=== PATIENT | female | born 1940 | race Caucasian/White ===

== ENCOUNTER 2017-01-16 18:59 | Inpatient (IN) | payer OTHER ==
--- NOTE | 2017-01-16 20:10 | PDOC ---
Rapid Medical Evaluation Chief Complaint: Blood Pressure Problem Time Seen by Provider: 01/16/17 20:06 Medical Evaluation: Allergies Allergy/AdvReac Type Severity Reaction Status Date / Time No Known Allergies Allergy Verified 01/16/17 20:04 01/16/17 20:06 I have performed a brief in-person evaluation of this patient. The patient presents with a chief complaint of: High Blood Pressure >200 SBP Pertinent physical exam findings: none I have ordered the following: cbc, cmp, troponin, ekg, tsh, UA, Urine C&S, Chest X-ray. The patient will proceed to the ED for further evaluation Discharge Disposition - Referrals Referrals: Chasidy Shoemaker MD [Primary Care Provider] - - Patient Instructions - Post Discharge Activity
[2017-01-16 20:36] LABS: BASOPHIL 0.7 % (0-2.0); EOSINOPHIL 3.6 % (0-4.5); MCH 29.5 pg (25.7-33.7); MCHC 33.3 g/dl (32.0-36.0); MEAN CELL VOLUME 88.4 fl (80-96); MEAN PLT VOLUME 7.7 fl (7.5-11.1); NEUTROPHILS 65.9 % (42.8-82.8); PLATELET COUNT 275 K/MM3 (134-434); RDW 13.7 % (11.6-15.6); WHITE BLOOD COUNT 9.4 K/mm3 (4.0-10.0)
[2017-01-16 20:40] LABS: URINE APPEARANCE CLEAR; URINE BILIRUBIN NEGATIVE (NEGATIVE); URINE BLOOD 1+ (NEGATIVE); URINE COLOR STRAW; URINE GLUCOSE (UA) NEGATIVE (NEGATIVE); URINE KETONE NEGATIVE (NEGATIVE); URINE NITRITE NEGATIVE (NEGATIVE); URINE UROBILINOGEN NEGATIVE mg/dL (0.2-1.0)
[2017-01-16 20:45] LABS: URINE PROTEIN 2+ (NEGATIVE)
[2017-01-16 20:47] LABS: URINE MUCUS RARE; URINE RBC 1 /hpf (0-3); URINE WBC 25 /hpf (3-5)
[2017-01-16 20:56] LABS: ALBUMIN 3.5 g/dl (3.4-5.0); ANION GAP 6 (8-16); BILIRUBIN,TOTAL 0.2 mg/dL (0.2-1.0); CALCIUM 8.7 mg/dL (8.5-10.1); CO2 24 mmol/L (21-32); CREATININE 1.8 mg/dL (0.55-1.02); GLUCOSE,RANDOM 134 mg/dL (74-106); SGOT/AST 14 U/L (15-37); SGPT/ALT 20 U/L (12-78); TOT PROT 7.6 g/dl (6.4-8.2)
[2017-01-16 21:05] LABS: ALK PHOS 86 U/L (45-117); CPK 131 IU/L (26-192); THYROID STIMULATING HORMONE 1.75 uIU/ml (0.358-3.74); TROPONIN I < 0.02 ng/ml (0.00-0.05)
--- NOTE | 2017-01-16 21:38 | PDOC ---
History of Present Illness - General History Source: Patient, Old Records Exam Limitations: No Limitations - History of Present Illness Initial Comments: 01/16/17 22:01 The patient is a 76 year old female, with a significant past medical history of HTN, CVA (2012), diabetes and HLD, who presents to the emergency department with elevated blood pressure onset today. She reports that she saw her PMD today who noticed that her blood pressure was elevated and advised her to come to the ED for further evaluation. On presentation she denies any other symptoms other than blurry vision, which she notes is due to her cataract. She reports that she has not been compliant with her medications lately because she feels "confused" with all the current medications she is on. The patient denies chest pain, shortness of breath, headache and dizziness. Denies fever, chills, nausea, vomit, diarrhea and constipation. Denies dysuria, frequency, urgency and hematuria. Allergies: None Past surgical history: Right eye cataract surgery Social history: No alcohol, tobacco or drug use reported PMD - Dr. Renato Umaña <Ralf Wan - Last Filed: 01/16/17 22:06> <Danyel Suggs - Last Filed: 01/17/17 00:28> - General Chief Complaint: Blood Pressure Problem Stated Complaint: HYPERTENSION Time Seen by Provider: 01/16/17 21:20 Past History <Ralf Wan - Last Filed: 01/16/17 22:06> - Past Medical History CVA: Yes (2012) COPD: No Diabetes: Yes HTN: Yes Hypercholesterolemia: Yes - Suicide/Smoking/Psychosocial Hx Smoking History: Never smoked Have you smoked in the past 12 months: No Information on smoking cessation initiated: No Hx Alcohol Use: No Drug/Substance Use Hx: No Substance Use Type: None Hx Substance Use Treatment: No <Danyel Suggs - Last Filed: 01/17/17 00:28> - Past Medical History Allergies/Adverse Reactions: Allergies Allergy/AdvReac Type Severity Reaction Status Date / Time No Known Allergies Allergy Verified 01/16/17 20:04 Home Medications: Ambulatory Orders Aspirin 81 mg PO DAILY 03/27/13 Aspirin/Dipyridamole [Aggrenox -] 1 combo PO BID 03/27/13 Gabapentin [Neurontin] 300 mg PO HS 03/27/13 Glyburide/Metformin HCl [Glyburide-Metformin 5-500 mg] 2 each PO BID 03/27/13 Insulin (Novolog) [Novolog Flexpen -] 0 units SQ ACHS 03/27/13 Rosuvastatin [Crestor -] 10 mg PO DAILY 03/27/13 Amlodipine/Valsartan [Exforge 5-160 mg Tablet] 1 each PO DAILY #30 tablet Cefuroxime Axetil [Ceftin] 500 mg PO BID #10 tablet 03/24/15 Review of Systems - Review of Systems Able to Perform ROS?: Yes Comments:: 01/16/17 22:00 CONSTITUTIONAL: No fever, no chills, no fatigue EYES: No visual changes ENT: No ear pain, no sore throat CARDIOVASCULAR: No chest pain, no palpitations RESPIRATORY: No cough, no SOB GI: No abdominal pain, no nausea, no vomiting, no constipation, no diarrhea GENITOURINARY: No dysuria, no frequency, no hematuria MUSKULOSKELETAL: No backpain, no joint pain, no myalgias SKIN: No rash NEURO: No headache <Ralf Wan - Last Filed: 01/16/17 22:06> *Physical Exam - Vital Signs Last Vital Signs Temp Pulse Resp BP Pulse Ox 98.0 F 78 20 231/113 98 01/16/17 20:04 01/16/17 20:04 01/16/17 20:04 01/16/17 20:04 01/16/17 20:04 - Physical Exam Comments: 01/16/17 22:00 CONSTITUTIONAL: Well-appearing; well-nourished; in no apparent distress HEAD: Normocephalic; atraumatic EYES: PERRL; EOM intact ENMT: External appears normal; normal oropharynx NECK: Supple; non-tender; no cervical lymphadenopathy CARD: Normal S1, S2; no murmurs, rubs, or gallops RESP: Normal chest excursion with respiration; breath sounds clear and equal bilaterally; no wheezes, rhonchi, or rales ABD: Soft, non-distended; non-tender; no palpable organomegaly, no palpable hernias EXT: Normal ROM in all four extremities; non-tender to palpation; distal pulses intact SKIN: Warm, dry, no rash NEURO: No focal neurological deficiencies. <Ralf Wan - Last Filed: 01/16/17 22:06> - Vital Signs Last Vital Signs Temp Pulse Resp BP Pulse Ox 98.0 F 78 20 231/113 98 01/16/17 20:04 01/16/17 20:04 01/16/17 20:04 01/16/17 20:04 01/16/17 20:04 <Danyel Suggs - Last Filed: 01/17/17 00:28> Heart Score/ECG Review #1 ECG reviewed & interpreted by me at: 22:06 01/16/17 20:14 Ventricular rate: 68 bpm HI interval: 168 ms QRS duration: 102 ms Normal sinus rhythm Nonspecific T wave abnormality <Ralf Wan - Last Filed: 01/16/17 22:06> ED Treatment Course - LABORATORY CBC & Chemistry Diagram: 01/16/17 20:22 01/16/17 20:22 - ADDITIONAL ORDERS Additional order review: Laboratory Results 01/16/17 01/16/17 20:30 20:22 Sodium 141 Potassium 4.6 Chloride 111 H Carbon Dioxide 24 Anion Gap 6 L BUN 35 H D Creatinine 1.8 H D Creat Clearance w eGFR 27.28 Random Glucose 134 H Calcium 8.7 Total Bilirubin 0.2 D AST 14 L D ALT 20 Alkaline Phosphatase 86 D Creatine Kinase 131 Troponin I < 0.02 Total Protein 7.6 D Albumin 3.5 TSH 1.75 Urine Color Straw Urine Appearance Clear Urine pH 5.0 Ur Specific [place] 1.010 Urine Protein 2+ H Urine Glucose (UA) Negative Urine Ketones Negative Urine Blood 1+ H Urine Nitrite Negative Urine Bilirubin Negative Urine Urobilinogen Negative Urine WBC (Auto) 25 Urine RBC (Auto) 1 Ur Epithelial Cells Rare Urine Mucus Rare 01/16/17 20:22 RBC 3.84 MCV 88.4 MCHC 33.3 RDW 13.7 MPV 7.7 Neutrophils % 65.9 D Lymphocytes % 23.1 D Monocytes % 6.7 Eosinophils % 3.6 Basophils % 0.7 <Ralf Wan - Last Filed: 01/16/17 22:06> - LABORATORY CBC & Chemistry Diagram: 01/16/17 20:22 01/16/17 20:22 - ADDITIONAL ORDERS Additional order review: Laboratory Results 01/16/17 01/16/17 20:30 20:22 Sodium 141 Potassium 4.6 Chloride 111 H Carbon Dioxide 24 Anion Gap 6 L BUN 35 H D Creatinine 1.8 H D Creat Clearance w eGFR 27.28 Random Glucose 134 H Calcium 8.7 Total Bilirubin 0.2 D AST 14 L D ALT 20 Alkaline Phosphatase 86 D Creatine Kinase 131 Troponin I < 0.02 Total Protein 7.6 D Albumin 3.5 TSH 1.75 Urine Color Straw Urine Appearance Clear Urine pH 5.0 Ur Specific [place] 1.010 Urine Protein 2+ H Urine Glucose (UA) Negative Urine Ketones Negative Urine Blood 1+ H Urine Nitrite Negative Urine Bilirubin Negative Urine Urobilinogen Negative Urine WBC (Auto) 25 Urine RBC (Auto) 1 Ur Epithelial Cells Rare Urine Mucus Rare 01/16/17 20:22 RBC 3.84 MCV 88.4 MCHC 33.3 RDW 13.7 MPV 7.7 Neutrophils % 65.9 D Lymphocytes % 23.1 D Monocytes % 6.7 Eosinophils % 3.6 Basophils % 0.7 <Danyel Suggs - Last Filed: 01/17/17 00:28> Medical Decision Making - Medical Decision Making 01/17/17 00:26 Patient is well-appearing 76-year-old female with history of hypertension, noncompliant with her medication regimen who presents to the ER with significantly elevated blood pressure at that has not been effectively addressed Biba systolic and 80s or administered at the PMDs office. In the ER, patient is noted to be hypertensive on initial evaluation without any neurological deficits or evidence of acute ischemia on the EKG. CBC is within normal limit. CMP reveals elevated BUN and creatinine consistent with acute renal failure likely hypertensive in nature. Urinalysis reveals persistent 2+ routine urinary. Patient received 25 mg of hydralazine with improvement in the blood pressure of 25%. Patient will require admission for hypertensive urgency and acute renal failure. Dr. Hernández informed. <Danyel Suggs - Last Filed: 01/17/17 00:28> *DC/Admit/Observation/Transfer - Attestations Scribe Attestion: 01/16/17 21:58 Documentation prepared by Ralf Wan, acting as medical education manager for Danyel Suggs MD <Ralf Wan - Last Filed: 01/16/17 22:06> - Discharge Dispostion Admit: Yes - Attestations Physician Attestion: 01/17/17 00:26 The documentation was prepared by the scribe under my direct supervision. I have reviewed the documentation which correctly represents the findings, medical decision-making and critical action taken by me. <Danyel Suggs - Last Filed: 01/17/17 00:28> Diagnosis at time of Disposition: Hypertensive urgency Acute renal failure Qualifiers: Acute renal failure type: unspecified Qualified Code(s): N17.9 - Acute kidney failure, unspecified - Discharge Dispostion Condition at time of disposition: Fair - Referrals Referrals: Chasidy Shoemaker MD [Primary Care Provider] - - Patient Instructions - Post Discharge Activity
[2017-01-16] MEDS ORDERED: hydrALAZINE HCL 25 MG TABLET (FP) PO ONE (22:07)
[2017-01-16] MEDS ORDERED: hydrALAZINE HCL 25 MG TABLET (FP) ONE (22:09)
[2017-01-17] MEDS ORDERED: ACETAMINOPHEN 325 MG TABLET (FP) PO PRN (02:59)
[2017-01-17 04:43] VITALS: BMI 24.8
[2017-01-17] MEDS ORDERED: metFORMIN HCL 500 MG TABLET (FP) PO SCH (07:00)
[2017-01-17] MEDS ORDERED: PT OWN MED DRAWER 7, Y5N ONE ×3 (09:33→19:59)
[2017-01-17] MEDS: NEBIVOLOL 5 MG TABLET (FP) PO SCH (09:51)
[2017-01-17] MEDS: ASPIRIN COATED 81 MG TABLET.EC PO SCH (09:51)
[2017-01-17] MEDS: ASPIRIN/DIPYRIDAMOLE 25 MG/200 MG CAPSULE (FP) PO SCH ×2 (09:52→21:19)
[2017-01-17] MEDS: INSULIN SLIDING SCALE (NOVOLOG) 1 VIAL SQ SCH ×4 (09:54→21:22)
[2017-01-17] MEDS: glyBURIDE 2.5 MG TABLET (FP) PO SCH ×2 (09:54→17:07)
[2017-01-17] MEDS: GABAPENTIN 300 MG CAPSULE (FP) PO SCH ×2 (09:55→21:19)
[2017-01-17] MEDS ORDERED: amLODIPine BESYLATE 5 MG TABLET (FP) PO SCH (10:00)
[2017-01-17] MEDS ORDERED: VALSARTAN 160 MG TABLET (UD) PO SCH (10:00)
[2017-01-17] MEDS ORDERED: FLU VACCINE QUAD 60 MCG/0.5 ML (MDV 17-18) IM ONE (10:00)
--- NOTE | 2017-01-17 11:08 | HP ---
Admitting History and Physical - Primary Care Physician PCP: Chasidy Shoemaker I - Admission Chief Complaint: elevated Blood presure History of Present Illness: The patient is a 76 year old female, with a significant past medical history of HTN, CVA (2012), diabetes and HLD, who presents to the emergency department with elevated blood pressure onset today. She reports that she saw her PMD today who noticed that her blood pressure was elevated and advised her to come to the ED for further evaluation. On presentation she denies any other symptoms other than blurry vision, which she notes is due to her cataract. She reports that she has not been compliant with her medications lately because she feels "confused" with all the current medications she is on. The patient denies chest pain, shortness of breath, headache and dizziness. Denies fever, chills, nausea, vomit, diarrhea and constipation. Denies dysuria, frequency, urgency and hematuria. 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 (2012), Seizure, TIA (2013) Cardiovascular: Yes: HTN, Hyperlipdemia ...: No Endocrine: Yes: Diabetes Mellitus - Advance Directives Advance Directives: Yes: Living Will - Smoking History Smoking history: Never smoked Have you smoked in the past 12 months: No - Alcohol/Substance Use Hx Alcohol Use: No - Social History ADL: Independent History of Recent Travel: No Home Medications - Allergies Allergies/Adverse Reactions: Allergies Allergy/AdvReac Type Severity Reaction Status Date / Time No Known Allergies Allergy Verified 01/16/17 20:04 - Home Medications Home Medications: Ambulatory Orders Aspirin 81 mg PO DAILY 03/27/13 Aspirin/Dipyridamole [Aggrenox -] 1 combo PO BID 03/27/13 Gabapentin [Neurontin] 300 mg PO HS 03/27/13 Glyburide/Metformin HCl [Glyburide-Metformin 5-500 mg] 2 each PO BID 03/27/13 Insulin (Novolog) [Novolog Flexpen -] 0 units SQ ACHS 03/27/13 Rosuvastatin [Crestor -] 10 mg PO DAILY 03/27/13 Amlodipine/Valsartan [Exforge 5-160 mg Tablet] 1 each PO DAILY #30 tablet Cefuroxime Axetil [Ceftin] 500 mg PO BID #10 tablet 03/24/15 Family Disease History - Family Disease History Family Disease History: Diabetes: Mother Review of Systems - Review of Systems Eyes: reports: Blurred Vision (is slightly better) Physical Examination Vital Signs: Vital Signs Temperature 98.5 F 01/17/17 10:09 Pulse Rate 69 01/17/17 10:09 Respiratory Rate 20 01/17/17 10:09 Blood Pressure 199/86 01/17/17 10:09 O2 Sat by Pulse Oximetry (%) 95 01/17/17 03:30 Constitutional: Yes: Calm Neck: Yes: Trachea Midline Cardiovascular: Yes: Regular Rate and Rhythm, S1, S2 Respiratory: Yes: CTA Bilaterally Gastrointestinal: Yes: Normal Bowel Sounds, Soft Edema: No Neurological: Yes: Alert, Oriented Labs: CBC, BMP 01/16/17 20:22 01/16/17 20:22 Imaging - Results Chest X-ray: Report Reviewed Problem List - Problems (1) Hypertensive urgency Assessment/Plan: increase norvasc dose will have cardio see patient will use hydralazine for bloodpressure control hold diovan for now will trend creatinine Code(s): I16.0 - HYPERTENSIVE URGENCY (2) Acute renal failure Assessment/Plan: given elevated creatine will hold metformin and diovan will check renal sono renal consult placed Code(s): N17.9 - ACUTE KIDNEY FAILURE, UNSPECIFIED Qualifiers: Acute renal failure type: unspecified Qualified Code(s): N17.9 - Acute kidney failure, unspecified (3) Hyperglycemia Assessment/Plan: check hga1c sliding scale bgm;glyburide Code(s): R73.9 - HYPERGLYCEMIA, UNSPECIFIED (4) CVA (cerebral vascular accident) Assessment/Plan: statin aggrenox BP control Code(s): I63.9 - CEREBRAL INFARCTION, UNSPECIFIED
[2017-01-17] MEDS ORDERED: amLODIPine BESYLATE 10 MG TABLET (FP) PO SCH (11:37)
[2017-01-17 12:29] LABS: BASOPHIL 0.7 % (0-2.0); EOSINOPHIL 4.2 % (0-4.5); MCH 29.4 pg (25.7-33.7); MEAN CELL VOLUME 89.1 fl (80-96); MEAN PLT VOLUME 7.5 fl (7.5-11.1); NEUTROPHILS 63.3 % (42.8-82.8); PLATELET COUNT 260 K/MM3 (134-434); RDW 13.5 % (11.6-15.6); WHITE BLOOD COUNT 7.7 K/mm3 (4.0-10.0)
--- NOTE | 2017-01-17 12:54 | EKG ---
Test Reason : Blood Pressure : / mmHG Vent. Rate : 068 BPM Atrial Rate : 068 BPM P-R Int : 168 ms QRS Dur : 102 ms QT Int : 392 ms P-R-T Axes : 051 025 095 degrees QTc Int : 416 ms NORMAL SINUS RHYTHM NONSPECIFIC T WAVE ABNORMALITY ABNORMAL ECG WHEN COMPARED WITH ECG OF 22-MAR-2015 14:46, NONSPECIFIC T WAVE ABNORMALITY, IMPROVED IN INFERIOR LEADS Confirmed by LASHAUN MOJICA, PHUONG (2013) on 01/17/2017 12:53:47 PM Referred By: Confirmed By:PHUONG WILKS MD
[2017-01-17 12:59] LABS: ALBUMIN 3.1 g/dl (3.4-5.0); ALK PHOS 83 U/L (45-117); ANION GAP 5 (8-16); BILIRUBIN,TOTAL 0.5 mg/dL (0.2-1.0); CALCIUM 8.3 mg/dL (8.5-10.1); CO2 25 mmol/L (21-32); CREATININE 1.5 mg/dL (0.55-1.02); GLUCOSE,RANDOM 176 mg/dL (74-106); SGOT/AST 15 U/L (15-37); SGPT/ALT 20 U/L (12-78); TOT PROT 6.8 g/dl (6.4-8.2)
[2017-01-17 13:43] LABS: URINE LEUK ESTERASE 1+ (NEGATIVE)
--- NOTE | 2017-01-17 14:03 | CON.CARD ---
Consult Consult Specialty:: Cardiology Referred by:: Dr Hernández Reason for Consultation:: htn - History of Present Illness Chief Complaint: htn History of Present Illness: She is a 76 year old female, with a history of HTN, CVA (2012), diabetes and HLD , who presents to the emergency department with elevated blood pressure while off of medications for several weeks to months. Denies chest pain, sob, orthopnea, pnd or edema. Exercise tolerance is poor. Found with elevated bp restarted on medications. 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, TIA (2013) Cardio/Vascular: Yes: HTN, Hyperlipdemia ...: No Endocrine: Yes: Diabetes Mellitus - Alcohol/Substance Use Hx Alcohol Use: No - Smoking History Smoking history: Never smoked Have you smoked in the past 12 months: No - Social History ADL: Independent History of Recent Travel: No Home Medications - Allergies Allergies/Adverse Reactions: Allergies Allergy/AdvReac Type Severity Reaction Status Date / Time No Known Allergies Allergy Verified 01/16/17 20:04 - Home Medications Home Medications: Ambulatory Orders Aspirin 81 mg PO DAILY 03/27/13 Aspirin/Dipyridamole [Aggrenox -] 1 combo PO BID 03/27/13 Gabapentin [Neurontin] 300 mg PO HS 03/27/13 Glyburide/Metformin HCl [Glyburide-Metformin 5-500 mg] 2 each PO BID 03/27/13 Insulin (Novolog) [Novolog Flexpen -] 0 units SQ ACHS 03/27/13 Rosuvastatin [Crestor -] 10 mg PO DAILY 03/27/13 Amlodipine/Valsartan [Exforge 5-160 mg Tablet] 1 each PO DAILY #30 tablet Cefuroxime Axetil [Ceftin] 500 mg PO BID #10 tablet 03/24/15 Family Disease History - Family Disease History Family Disease History: Diabetes: Mother Vital Signs: Vital Signs Temperature 98.5 F 01/17/17 10:09 Pulse Rate 69 01/17/17 10:09 Respiratory Rate 20 01/17/17 10:09 Blood Pressure 199/86 01/17/17 10:09 O2 Sat by Pulse Oximetry (%) 96 01/17/17 09:00 Constitutional: Yes: No Distress, Calm Eyes: Yes: Conjunctiva Clear, EOM Intact HENT: Yes: Atraumatic, Normocephalic Neck: Yes: Trachea Midline Respiratory: Yes: CTA Bilaterally Gastrointestinal: Yes: Normal Bowel Sounds, Soft, Abdomen, Obese Cardiovascular: Yes: Regular Rate and Rhythm JVD: No Carotid Bruit: No PMI: Non-Displaced Heart Sounds: Yes: S1, S2 Edema: No Peripheral Pulses WNL: Yes - Other Data Labs, Other Data: CBC, BMP 01/17/17 12:27 01/17/17 12:27 Troponin, BNP 01/16/17 20:22 Troponin I < 0.02 Troponin, BNP 01/16/17 20:22 Troponin I < 0.02 Imaging - Results EKG: Report Reviewed (nsr nssttw changes.) Problem List - Problems (1) Hypertensive urgency Assessment/Plan: Blood pressure is improved. Continue current medications. Echo pending. No need for ischemia or secondary htn raymundo. DC for outpatient fu if echo OK. Code(s): I16.0 - HYPERTENSIVE URGENCY
[2017-01-17] MEDS: hydrALAZINE HCL 25 MG TABLET (FP) PO SCH ×2 (17:06→21:18)
--- NOTE | 2017-01-17 17:46 | CONSULT ---
Consult Consult Specialty:: Nephrology Reason for Consultation:: LUIS ANTONIO and HTN - History of Present Illness Chief Complaint: sent in from PMD for elevated blood pressure History of Present Illness: Pt is a 76 year old female with pmhx of HTN, CVA, hyperlipidemia, and DM who was sent in to the hospital from her PMD for elevated blood pressure. She says that she stopped taking her blood pressure medications a few weeks ago. She denies chest pain or shortness of breath. She says she feels she is on too many medications. She was found to have elevated creatinine and I was called to evaluate her. She denies dysuria or hematuria. She denies nsaid use. 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, TIA (2013) Cardio/Vascular: Yes: HTN, Hyperlipdemia ...: No Endocrine: Yes: Diabetes Mellitus - Alcohol/Substance Use Hx Alcohol Use: No - Smoking History Smoking history: Never smoked Have you smoked in the past 12 months: No - Social History ADL: Independent History of Recent Travel: No Home Medications - Allergies Allergies/Adverse Reactions: Allergies Allergy/AdvReac Type Severity Reaction Status Date / Time No Known Allergies Allergy Verified 01/16/17 20:04 - Home Medications Home Medications: Ambulatory Orders Aspirin 81 mg PO DAILY 03/27/13 Aspirin/Dipyridamole [Aggrenox -] 1 combo PO BID 03/27/13 Gabapentin [Neurontin] 300 mg PO HS 03/27/13 Glyburide/Metformin HCl [Glyburide-Metformin 5-500 mg] 2 each PO BID 03/27/13 Insulin (Novolog) [Novolog Flexpen -] 0 units SQ ACHS 03/27/13 Rosuvastatin [Crestor -] 10 mg PO DAILY 03/27/13 Amlodipine/Valsartan [Exforge 5-160 mg Tablet] 1 each PO DAILY #30 tablet Cefuroxime Axetil [Ceftin] 500 mg PO BID #10 tablet 03/24/15 Family Disease History - Family Disease History Family Disease History: Diabetes: Mother Review of Systems - Review of Systems Constitutional: reports: No Symptoms Eyes: reports: No Symptoms HENT: reports: No Symptoms Neck: reports: No Symptoms Cardiovascular: reports: No Symptoms Respiratory: reports: No Symptoms Gastrointestinal: reports: No Symptoms Genitourinary: reports: No Symptoms Musculoskeletal: reports: No Symptoms Integumentary: reports: No Symptoms Neurological: reports: No Symptoms Endocrine: reports: No Symptoms Hematology/Lymphatic: reports: No Symptoms Psychiatric: reports: No Symptoms Physical Exam Vital Signs: Vital Signs Temperature 99.0 F 01/17/17 14:43 Pulse Rate 68 01/17/17 14:43 Respiratory Rate 20 01/17/17 14:43 Blood Pressure 183/76 01/17/17 14:43 O2 Sat by Pulse Oximetry (%) 96 01/17/17 09:00 Constitutional: Yes: Calm Eyes: Yes: Conjunctiva Clear HENT: Yes: Atraumatic Neck: Yes: Supple Cardiovascular: Yes: S1, S2 Respiratory: Yes: CTA Bilaterally Gastrointestinal: Yes: Soft Renal/: Yes: WNL Musculoskeletal: Yes: WNL Edema: No Neurological: Yes: Oriented Psychiatric: Yes: Oriented Labs: CBC, BMP 01/17/17 12:27 01/17/17 12:27 Laboratory Tests 01/16/17 01/16/17 01/17/17 20:22 20:30 12:27 WBC 7.7 Hct 32.3 L Sodium Potassium Chloride Carbon Dioxide 24 Anion Gap 6 L BUN 35 H D Creatinine 1.8 H D Urine Protein 2+ H Urine Blood 1+ H 01/17/17 12:27 WBC Hct Sodium 141 Potassium 4.7 Chloride 111 H Carbon Dioxide 25 Anion Gap 5 L BUN 36 H Creatinine 1.5 H Urine Protein Urine Blood Imaging - Results Chest X-ray: Report Reviewed Ultrasound: Report Reviewed Other: Report Reviewed (echo: LV size and function are normal) Problem List - Problems (1) Acute renal failure Code(s): N17.9 - ACUTE KIDNEY FAILURE, UNSPECIFIED Qualifiers: Acute renal failure type: unspecified Qualified Code(s): N17.9 - Acute kidney failure, unspecified (2) CVA (cerebral vascular accident) Code(s): I63.9 - CEREBRAL INFARCTION, UNSPECIFIED (3) Hypertensive urgency Code(s): I16.0 - HYPERTENSIVE URGENCY (4) UTI (urinary tract infection) Code(s): N39.0 - URINARY TRACT INFECTION, SITE NOT SPECIFIED Qualifiers: Urinary tract infection type: acute cystitis Hematuria presence: with hematuria Qualified Code(s): N30.01 - Acute cystitis with hematuria Assessment/Plan Current Medications Generic Name Dose Route Start Last Admin Trade Name Isrrael PRN Reason Stop Dose Admin Acetaminophen 650 mg 01/17/17 02:59 Tylenol - PO Q6H PRN FEVER OR PAIN Amlodipine Besylate 10 mg 01/17/17 11:37 Norvasc - PO DAILY IRMA Aspirin 81 mg 01/17/17 10:00 01/17/17 09:51 Ecotrin - PO 81 mg DAILY IRMA Administration Dipyridamole/Aspirin 1 combo 01/17/17 10:00 01/17/17 09:52 Aggrenox - PO 1 combo BID IRMA Administration Gabapentin 300 mg 01/17/17 10:00 01/17/17 09:55 Neurontin - PO 300 mg BID IRMA Administration Glyburide 2.5 mg 01/17/17 07:00 01/17/17 17:07 Diabeta - PO 2.5 mg BID@0700,1630 IRMA Administration Hydralazine HCl 25 mg 01/17/17 17:00 01/17/17 17:06 Apresoline - PO 25 mg BID IRMA Administration Insulin Aspart 1 vial 01/17/17 07:00 01/17/17 17:06 Novolog Vial Sliding Scale - SQ Not Given ACHS [facility] Protocol Nebivolol 5 mg 01/17/17 10:00 01/17/17 09:51 Bystolic - PO 5 mg DAILY IRMA Administration Rosuvastatin Calcium 10 mg 01/17/17 22:00 Crestor - PO HS IRMA Selected Entries 01/16/17 01/17/17 01/17/17 20:04 03:30 06:00 Blood Pressure 231/113 182/91 162/68 01/17/17 01/17/17 10:09 14:43 Blood Pressure 199/86 183/76 Impression 1. LUIS ANTONIO 2. HTN with hypertensive urgency 3. DM 4. non compliance with meds 5. hyperlipidemia 6. hx CVA 7. epilesy 8. renal cyst 9. possible angiomyolipoma Plan - monitor blood pressure - cont current meds - repeat bp after amlodipine - can titrate up hydralazine as needed - cardiology input appreciated - renal ultrasound reviewed - pt does have blood and protein in her urine - pt will need outpt CKD workup - renal function is improved from yesterday - will follow Dr Franklin
[2017-01-17] MEDS ORDERED: ROSUVASTATIN CA 10 MG TABLET (FP) PO SCH (22:00)
[2017-01-18] MEDS ORDERED: PT OWN MED DRAWER 7, Y5N ONE ×2 (05:20→09:03)
[2017-01-18] MEDS: glyBURIDE 2.5 MG TABLET (FP) PO SCH (06:39)
[2017-01-18] MEDS: INSULIN SLIDING SCALE (NOVOLOG) 1 VIAL SQ SCH ×2 (06:42→11:51)
[2017-01-18 08:34] LABS: ALK PHOS 80 U/L (45-117); ANION GAP 8 (8-16); BILIRUBIN,TOTAL 0.4 mg/dL (0.2-1.0); CHOLESTEROL 215 mg/dL (50-200); CO2 21 mmol/L (21-32); CREATININE 1.7 mg/dL (0.55-1.02); GLUCOSE,RANDOM 90 mg/dL (74-106); SGOT/AST 14 U/L (15-37); SGPT/ALT 20 U/L (12-78); TOT PROT 6.4 g/dl (6.4-8.2)
[2017-01-18 09:08] VITALS: BP 159/84; PULSE 58; TEMP 97.8
[2017-01-18] MEDS: GABAPENTIN 300 MG CAPSULE (FP) PO SCH (09:32)
[2017-01-18] MEDS: ASPIRIN COATED 81 MG TABLET.EC PO SCH (09:33)
[2017-01-18] MEDS: NEBIVOLOL 5 MG TABLET (FP) PO SCH (09:33)
[2017-01-18] MEDS: ASPIRIN/DIPYRIDAMOLE 25 MG/200 MG CAPSULE (FP) PO SCH (09:33)
[2017-01-18] MEDS: hydrALAZINE HCL 25 MG TABLET (FP) PO SCH (09:33)
[2017-01-18] MEDS ORDERED: ROSUVASTATIN CA 20 MG TABLET (FP) PO SCH (10:22)
--- NOTE | 2017-01-18 10:26 | PN ---
Progress Note, Physician Chief Complaint: patient seen and examined wants to go home BP is better today - Current Medication List Current Medications: Active Medications Acetaminophen (Tylenol -) 650 mg PO Q6H PRN PRN Reason: FEVER OR PAIN Last Admin: 01/18/17 06:42 Dose: 650 mg Amlodipine Besylate (Norvasc -) 10 mg PO DAILY [facility] Last Admin: 01/18/17 09:33 Dose: 10 mg Aspirin (Ecotrin -) 81 mg PO DAILY [facility] Last Admin: 01/18/17 09:33 Dose: 81 mg Dipyridamole/Aspirin (Aggrenox -) 1 combo PO BID [facility] Last Admin: 01/18/17 09:33 Dose: 1 combo Gabapentin (Neurontin -) 300 mg PO BID [facility] Last Admin: 01/18/17 09:32 Dose: 300 mg Glyburide (Diabeta -) 2.5 mg PO BID@0700,1630 [facility] Last Admin: 01/18/17 06:39 Dose: 2.5 mg Hydralazine HCl (Apresoline -) 25 mg PO BID [facility] Last Admin: 01/18/17 09:33 Dose: 25 mg Insulin Aspart (Novolog Vial Sliding Scale -) 1 vial SQ ACHS [facility] PRN Reason: Protocol Last Admin: 01/18/17 06:42 Dose: Not Given Nebivolol (Bystolic -) 5 mg PO DAILY [facility] Last Admin: 01/18/17 09:33 Dose: 5 mg Rosuvastatin Calcium (Crestor -) 20 mg PO [facility] - Objective Vital Signs: Vital Signs Temperature 97.8 F 01/18/17 09:07 Pulse Rate 58 L 01/18/17 09:07 Respiratory Rate 18 01/18/17 09:07 Blood Pressure 159/84 01/18/17 09:07 O2 Sat by Pulse Oximetry (%) 96 01/17/17 21:00 Constitutional: Yes: Calm Neck: Yes: Trachea Midline Cardiovascular: Yes: Regular Rate and Rhythm, S1, S2 Respiratory: Yes: CTA Bilaterally Gastrointestinal: Yes: Normal Bowel Sounds, Soft Edema: No Neurological: Yes: Alert, Oriented Labs: CBC, BMP 01/17/17 12:27 01/18/17 06:30 Problem List - Problems (1) Hypertensive urgency Assessment/Plan: increase norvasc dose cardiology consult appreciated will use hydralazine for bloodpressure control given the proteinuria will restart creatinine Code(s): I16.0 - HYPERTENSIVE URGENCY (2) Acute renal failure Assessment/Plan: appreciate renal consult will restart diovan given proteinuria will need outpatient renal work up- explained to patient to follow up with her PMD and renal doctor renal camryn noted leonardo need follow up Code(s): N17.9 - ACUTE KIDNEY FAILURE, UNSPECIFIED Qualifiers: Acute renal failure type: unspecified Qualified Code(s): N17.9 - Acute kidney failure, unspecified (3) Hyperglycemia Assessment/Plan: hga1c is 7.0 given her GFR is < 35 will stop metformin continue glyburide and start low dose januvia for now Code(s): R73.9 - HYPERGLYCEMIA, UNSPECIFIED (4) CVA (cerebral vascular accident) Assessment/Plan: statin dose increased given the lipid profile aggrenox BP control is better Code(s): I63.9 - CEREBRAL INFARCTION, UNSPECIFIED
--- NOTE | 2017-01-18 10:33 | DS ---
Physical Examination Vital Signs: Vital Signs Temperature 97.8 F 01/18/17 09:07 Pulse Rate 58 L 01/18/17 09:07 Respiratory Rate 18 01/18/17 09:07 Blood Pressure 159/84 01/18/17 09:07 O2 Sat by Pulse Oximetry (%) 96 01/17/17 21:00 Constitutional: Yes: Calm Neck: Yes: Trachea Midline Cardiovascular: Yes: Regular Rate and Rhythm, S1, S2 Respiratory: Yes: CTA Bilaterally Gastrointestinal: Yes: Normal Bowel Sounds, Soft Edema: No Neurological: Yes: Alert, Oriented Labs: CBC, BMP 01/17/17 12:27 01/18/17 06:30 Discharge Summary Reason For Visit: HYPERTENSIVE URGENCY,ACUTE RENAL FAILURE Current Active Problems Acute renal failure (Acute) CVA (cerebral vascular accident) (Acute) Hyperglycemia (Acute) Hypertensive urgency (Acute) Hospital Course: Chief Complaint: elevated Blood pressure\\ History of Present Illness: The patient is a 76 year old female, with a significant past medical history of HTN, CVA (2012), diabetes and HLD, who presents to the emergency department with elevated blood pressure onset today. She reports that she saw her PMD today who noticed that her blood pressure was elevated and advised her to come to the ED for further evaluation. On presentation she denies any other symptoms other than blurry vision, which she notes is due to her cataract. She reports that she has not been compliant with her medications lately because she feels "confused" with all the current medications she is on. The patient denies chest pain, shortness of breath, headache and dizziness. Denies fever, chills, nausea, vomit, diarrhea and constipation. Denies dysuria, frequency, urgency and hematuria. 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: CVA (2012), Seizure, TIA (2013) Cardiovascular: Yes: HTN, Hyperlipdemia ...: No Endocrine: Yes: Diabetes Mellitus - Advance Directives Advance Directives: Yes: Living Will in the hospital : increase dose of norvasc started on hydralazine will hold diovan, continue bystolic renal disease: follow up with renal as outpatient DM stop metformin glyburide and low dose januvia HLD inc TG and LDL increase dose of crestor needs outpatient follow up explained to patient Condition: Fair - Instructions Referrals: Chasidy Shoemaker MD [Primary Care Provider] - 1 Week Disposition: HOME - Home Medications Comprehensive Discharge Medication List: Ambulatory Orders Aspirin 81 mg PO DAILY 03/27/13 Aspirin/Dipyridamole [Aggrenox -] 1 combo PO BID 03/27/13 Gabapentin [Neurontin] 300 mg PO HS 03/27/13 Glyburide/Metformin HCl [Glyburide-Metformin 5-500 mg] 2 each PO BID 03/27/13 Insulin (Novolog) [Novolog Flexpen -] 0 units SQ ACHS 03/27/13 Rosuvastatin [Crestor -] 10 mg PO DAILY 03/27/13 Amlodipine/Valsartan [Exforge 5-160 mg Tablet] 1 each PO DAILY #30 tablet Cefuroxime Axetil [Ceftin] 500 mg PO BID #10 tablet 03/24/15
--- NOTE | 2017-01-18 10:43 | DS ---
Physical Examination Vital Signs: Vital Signs Temperature 97.8 F 01/18/17 09:07 Pulse Rate 58 L 01/18/17 09:07 Respiratory Rate 18 01/18/17 09:07 Blood Pressure 159/84 01/18/17 09:07 O2 Sat by Pulse Oximetry (%) 96 01/17/17 21:00 Constitutional: Yes: Calm Neck: Yes: Trachea Midline Cardiovascular: Yes: Regular Rate and Rhythm, S1, S2 Respiratory: Yes: CTA Bilaterally Gastrointestinal: Yes: Normal Bowel Sounds, Soft Edema: No Neurological: Yes: Alert, Oriented Labs: CBC, BMP 01/17/17 12:27 01/18/17 06:30 Discharge Summary Reason For Visit: HYPERTENSIVE URGENCY,ACUTE RENAL FAILURE Current Active Problems Acute renal failure (Acute) CVA (cerebral vascular accident) (Acute) Hyperglycemia (Acute) Hypertensive urgency (Acute) Hospital Course: PCP: Chasidy Shoemaker I - Admission Chief Complaint: elevated Blood presure History of Present Illness: The patient is a 76 year old female, with a significant past medical history of HTN, CVA (2012), diabetes and HLD, who presents to the emergency department with elevated blood pressure onset today. She reports that she saw her PMD today who noticed that her blood pressure was elevated and advised her to come to the ED for further evaluation. On presentation she denies any other symptoms other than blurry vision, which she notes is due to her cataract. She reports that she has not been compliant with her medications lately because she feels "confused" with all the current medications she is on. The patient denies chest pain, shortness of breath, headache and dizziness. Denies fever, chills, nausea, vomit, diarrhea and constipation. Denies dysuria, frequency, urgency and hematuria. Allergies: None Past surgical history: Right eye cataract surgery Social history: No alcohol, tobacco or drug use reported in ER the BP was noted 231/113 got norvasc and hydralazine patient labs show renal insufficiency History Source: Patient, Medical Record in hospital dose of norvasc incrased diovan stopped hydralazine started DM: stop metformin start januvia HLD: inc crestor dose renal disease needs outpatient follow up explained to patient she needs to follow up Condition: Fair - Instructions Diet, Activity, Other Instructions: stop metformin and diovan Referrals: Chasidy Shoemaker MD [Primary Care Provider] - 1 Week Erin Franklin MD [Staff Physician] - 1 Week Disposition: HOME - Home Medications Comprehensive Discharge Medication List: Ambulatory Orders Aspirin 81 mg PO DAILY 03/27/13 Aspirin/Dipyridamole [Aggrenox -] 1 combo PO BID 03/27/13 Gabapentin [Neurontin] 300 mg PO HS 03/27/13 Insulin (Novolog) [Novolog Flexpen -] 0 units SQ ACHS 03/27/13 Amlodipine Besylate [Norvasc -] 10 mg PO DAILY #30 tablet MDD 1 01/18/17 Hydralazine HCl [Apresoline -] 25 mg PO BID #60 tablet MDD 2 01/18/17 Rosuvastatin [Crestor -] 20 mg PO HS #30 tablet MDD 1 01/18/17
== END 2017-01-18 13:45 | disposition home health service (06) | DRG 305 ==
LOC: JER 18:59 → JERBED 01-17 00:28 → J8W 01-17 02:09 → J7W 01-17 03:28
PROVIDERS: ADMIT Family Medicine; ATTEND Family Medicine
DX: I16.0 Hypertensive urgency (principal); N17.9 Acute kidney failure, unspecified; E11.9 Type 2 diabetes mellitus without complications; E78.5 Hyperlipidemia, unspecified; Z86.73 Personal history of transient ischemic attack (TIA), and cerebral infarction without residual deficits; Z91.14 Patient's other noncompliance with medication regimen; N28.1 Cyst of kidney, acquired
CPT/HCPCS: 36415; 71020-TC; 76775-TC; 80048; 80053; 80061; 81003; 81015; 82550; 83036; 83721; 84443; 84484; 85025; 87086; 90688; 93005; 93010; 93306-TC; 99283-25

== ENCOUNTER 2018-11-12 11:47 | Inpatient (IN) | payer OTHER ==
--- NOTE | 2018-11-12 12:53 | PDOC ---
Documentation entered by Maria Elena Wong SCRIBE, acting as scribe for Sarai Cortez DO. Sarai Cortez DO: This documentation has been prepared by the Marvin hernandez Adrianna, SCRIBE, under my direction and personally reviewed by me in its entirety. I confirm that the documentation accurately reflects all work, treatment, procedures, and medical decision making performed by me. History of Present Illness - General Chief Complaint: Lightheaded Stated Complaint: DIZZINESS Time Seen by Provider: 11/12/18 12:24 - History of Present Illness Initial Comments: The patient is a 78 year old female, with a significant past medical history of HTN, CVA (2013, with residual poor vision), diabetes and HLD, who presents to the ED for evaluation of dizziness for 2 days. Patient is a poor historian, her aid provides history at bedside. Aid notes that the patient has been complaining that she feels dizzy, as if she is going to pass out. She typically ambulates with a cane at baseline, but has been clinging to her aid because she feels like she is off-balance and going to fall. Aid notes she seems to be overwhelmed, and will not let her leave when her shift is over. Patient endorses numbness and tingling of the left hand, but is unsure of the duration of its presence. She denies any pain diffusely at this time. Patient was supposed to follow up with infrastructure security architect this morning, but came to the ED for evaluation instead. She has not followed up with her neurologist at this time. Denies fever, chills, chest pain, palpitations, SOB, abdominal pain, nausea, vomit, diarrhea, constipation, blood in stool, dysuria, hematuria, room- spinning sensation, changes in vision (from baseline), blurred vision, or LE edema. Allergies: NKA, NKDA Past surgical history: Right eye cataract surgery Social history: No alcohol, tobacco or drug use reported PCP: Dr. Hernández Neurologist: Dr. Ramos Caustic Strength Inspector: Dr. Patino tPA Exclusion checklist 3-4.5h - Time Elapsed Date last known well: 11/10/18 - Ineligibility reason(s) Reasons No tPA given: Outside of window - delayed arrival NIH Stroke Scale - Last Known Well Date/Time & Onset Date Last Known Well: 11/10/18 - Initial Evaluation Level of consciousness: Alert Ask patient the month and their age: Answers both correctly Ask patient to open & close eyes; make fist and let go: Obeys both correctly Best gaze (horizontal eye movement): Normal Visual field testing: No visual field loss Facial paresis (Show teeth/raise eyebrows/close eyes tight): Normal symmetrical movement Motor Function: Left Arm: Normal Motor Function: Right Arm: Normal (extends arm 90 (or 45) degrees for 10 seconds without drift Motor Function: Left Leg: Normal (extends leg 30 degrees for 5 seconds without drift) Motor Function: Right Leg: Normal (extends leg 30 degrees for 5 seconds without drift) Limb Ataxia: No ataxia Sensory(Use pinprick test arms,legs,trunk,face/side to side): Normal Best language (Describe picture, name items, read sentences): No Aphasia Dysarthria (read several words): Normal articulation Extinction and Inattention: No abnormality - Total Score NIH Stroke Scale Score: 0 Past History - Past Medical History Allergies/Adverse Reactions: Allergies Allergy/AdvReac Type Severity Reaction Status Date / Time No Known Allergies Allergy Verified 11/12/18 12:04 Home Medications: Ambulatory Orders Amlodipine Besylate [Norvasc -] 10 mg PO DAILY #30 tablet MDD 1 01/18/17 Ergocalciferol [Vitamin D2] 50,000 unit PO Q7D@1000 11/12/18 Glipizide Xl [Glucotrol Xl -] 5 mg PO BID 11/12/18 Losartan Potassium [Cozaar] 100 mg PO DAILY 11/12/18 Metoprolol Succinate [Toprol Xl] 12.5 mg PO DAILY 11/12/18 Anemia: Yes Asthma: Yes CVA: Yes (2012) COPD: No Diabetes: Yes HTN: Yes Hypercholesterolemia: Yes - Psycho Social/Smoking Cessation Hx Smoking History: Never smoked Have you smoked in the past 12 months: No Hx Alcohol Use: No Drug/Substance Use Hx: No Substance Use Type: None Hx Substance Use Treatment: No Review of Systems - Review of Systems Comments:: GENERAL/CONSTITUTIONAL: +Overwhelmed. No fever or chills. No weakness. HEAD, EYES, EARS, NOSE AND THROAT: No change in vision. No ear pain or discharge. No sore throat. GASTROINTESTINAL: No nausea, vomiting, diarrhea or constipation. GENITOURINARY: No dysuria, frequency, or change in urination. CARDIOVASCULAR: No chest pain or shortness of breath. RESPIRATORY: No cough, wheezing, or hemoptysis. MUSCULOSKELETAL: No joint or muscle swelling or pain. No neck or back pain. SKIN: No rash NEUROLOGIC: +Dizziness, feeling as if she is about to pass out. +Feeling off- balance as if she is going to fall. +Numbness and tingling of the left hand. No headache or loss of consciousness. ENDOCRINE: No increased thirst. No abnormal weight change. HEMATOLOGIC/LYMPHATIC: No anemia, easy bleeding, or history of blood clots. ALLERGIC/IMMUNOLOGIC: No hives or skin allergy. *Physical Exam - Vital Signs Last Vital Signs Temp Pulse Resp BP Pulse Ox 98.0 F 86 16 152/78 94 L 11/12/18 12:11/12/18 12:11/12/18 12:11/12/18 12:11/12/18 12:01 - Physical Exam Comments: Constitutional: Awake, alert, oriented. No acute distress. Head: Normocephalic. Atraumatic Eyes: PERRL. EOMI. Conjunctivae are not pale. ENT: Mucous membranes are moist and intact. Posterior pharynx without exudates or erythema. Uvula midline. Neck: Supple. Full ROM. No lymphadenopathy. No C spine tenderness. Cardiovascular: Regular rate. Regular rhythm. S1, S2 regular. Distal pulses are 2+ and symmetric. Pulmonary/Chest: No evidence of respiratory distress. Clear to auscultation bilaterally No wheezing, rales or rhonchi. Abdominal: Soft and nondistended. There is no tenderness. No rebound, guarding or rigidity. No organomegaly. No palpable masses. Good bowel sounds. Back: No CVA tenderness. No T or L spine tenderness. Musculoskeletal: No edema. No cyanosis. No clubbing. Full range of motion in all extremities. Nocalf tenderness. Radial/pedal pulses are intact and 2+ bilaterally Skin: Skin is warm and dry. No petechiae. No purpura. Neurological: Alert and oriented to person, place, and time. Cranial nerves II -XII are grossly intact. No deficits to light touch and temperature in face, upper extremities and lower extremities. No motor deficits in the in face, upper extremities and lower extremities. Normoreflexic in the upper and lower extremities. Normal speech. Toes are down-going bilaterally. Gait is normal without ataxia. Psychiatric: Good eye contact. Normal interaction, affect and behavior. Heart Score/ECG Review - ECG Intrepretation Comment:: 11/12/18 13:56 sinus at 77, lbbb, no acute st/t wave findings ED Treatment Course - LABORATORY CBC & Chemistry Diagram: 11/12/18 13:15 11/12/18 13:15 - RADIOLOGY Radiograph Interpretation: EXAM#: TYPE/EXAM: RESULT: [id number] RAD/CHEST X-RAY PORTABLE* Portable chest: Shortness of breath Impression: No acute chest pathology. Reported By: Huey Pritchard MD 11/12/18 14:11 EXAM#: TYPE/EXAM: RESULT: [id number] CT/HEAD CT WITHOUT CONTRAST Headache. Impression. No evidence of acute intracranial hemorrhage, hydrocephalus. Chronic supratentorial infarcts, extensive supratentorial white matter microangiopathic ischemic changes, gliosis. No interval change in comparison to CT of the brain March 22, 2015 Reported By: Jeffery Flower MD 11/12/18 14:24 - Consult/PCP Case Discussed with Personal Care Physician Not on Staff:: head ct without acute findings. case discussed with Dr. Ramos, will review ct, will monitor on stroke floor, will see in consult Medical Decision Making - Medical Decision Making Discharge - Discharge Information Problems reviewed: Yes Clinical Impression/Diagnosis: LBBB (left bundle branch block), Dizziness, Unsteady gait Condition: Guarded - Admission Yes - Follow up/Referral - Patient Discharge Instructions - Post Discharge Activity
[2018-11-12 13:34] LABS: BASO % 0.5 % (0-2.0); EOS % 1.4 % (0-4.5); HEMATOCRIT 33.3 % (32.4-45.2); LYMPH % 19.7 % (8-40); MCH 29.4 pg (25.7-33.7); MEAN CELL VOLUME 89.1 fl (80-96); MEAN PLT VOLUME 7.7 fl (7.5-11.1); MONO % 5.7 % (3.8-10.2); NEUT % 72.7 % (42.8-82.8); PLATELET COUNT 278 K/MM3 (134-434); RBC 3.74 M/mm3 (3.60-5.2); WHITE BLOOD COUNT 7.3 K/mm3 (4.0-10.0)
[2018-11-12 13:45] LABS: PROTHROMBIN TIME (PATIENT) 11.8 SEC (9.7-13.0)
[2018-11-12 14:05] LABS: ALBUMIN 3.8 g/dl (3.4-5.0); ALK PHOS 67 U/L (45-117); ANION GAP 11 MMOL/L (8-16); BILIRUBIN,TOTAL 0.5 mg/dL (0.2-1); BLOOD UREA NITROGEN 49.7 mg/dL (7-18); CHLORIDE 109 mmol/L (98-107); CO2 23 mmol/L (21-32); GLUCOSE,RANDOM 242 mg/dL (74-106); POTASSIUM 4.8 mmol/L (3.5-5.1); SGOT/AST 11 U/L (15-37); SGPT/ALT 16 U/L (13-61); SODIUM 142 mmol/L (136-145); TOT PROT 7.4 g/dl (6.4-8.2)
--- NOTE | 2018-11-12 14:36 | CON.NEURO ---
Consult Consult Specialty:: joaquina Referred by:: ER - History of Present Illness Chief Complaint: dizzy History of Present Illness: CVA HPI 78-year-old right-handed female patient well known to me from the office with present medical history significant for coronary artery disease, hypertension, stroke in 2012, questionable TIA presented to the hospital with a chief complaint of feeling lightheaded and dizzy. Patient came in today emergency room stroke protocol was initiated CAT scan of the head revealed no evidence of acute pathology patient was stepwise patient was not on the aspirin patient was admitted to the telemetry for further treatment and management. Since admission patient with no recurrence of her symptoms patient feels better. Patient was found with mild dehydration patient with no report of any recent travel head trauma. 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, TIA (2013) Cardio/Vascular: Yes: HTN, Hyperlipdemia Endocrine: Yes: Diabetes Mellitus - Alcohol/Substance Use Hx Alcohol Use: No - Smoking History Smoking history: Never smoked Have you smoked in the past 12 months: No - Social History ADL: Independent History of Recent Travel: No Home Medications - Allergies Allergies/Adverse Reactions: Allergies Allergy/AdvReac Type Severity Reaction Status Date / Time No Known Allergies Allergy Verified 11/12/18 12:04 - Home Medications Home Medications: Ambulatory Orders Amlodipine Besylate [Norvasc -] 10 mg PO DAILY #30 tablet MDD 1 01/18/17 Ergocalciferol [Vitamin D2] 50,000 unit PO Q7D@1000 11/12/18 Glipizide Xl [Glucotrol Xl -] 5 mg PO BID 11/12/18 Losartan Potassium [Cozaar] 100 mg PO DAILY 11/12/18 Metoprolol Succinate [Toprol Xl] 12.5 mg PO DAILY 11/12/18 Family Medical History Family History: Unable to Obtain Review of Systems - Review of Systems Neurological: reports: Change in LOC, Headache, Incoordination Physical Exam-Neuro Vital Signs: Vital Signs Temperature 98.0 F 11/12/18 12:01 Pulse Rate 86 11/12/18 12:01 Respiratory Rate 16 11/12/18 12:01 Blood Pressure 152/78 11/12/18 12:01 O2 Sat by Pulse Oximetry (%) 94 L 11/12/18 12:01 Constitutional: Yes: Well Nourished Neck: Yes: WNL Cardiovascular: Yes: WNL Labs: CBC, BMP 11/12/18 13:15 11/12/18 13:15 INR, PTT INR 1.00 (0.83-1.09) 11/12/18 13:15 - Neuro Exam Level Of Consciousness: Yes: Oriented to Person, Oriented to Place, Oriented to Time Eyes: Yes: PERRLA Speech: WNL Dominant Hand: Right Cranial Nerves II-XII Intact: Yes Gag: Present DTR's: 1+ Left Bicep, 1+ Right Bicep Response to light touch: Normal Response to pain prick: Normal Response to temperature: Normal Motor Strength: 3/5: Left Arm, Right Arm, Left Leg, Right Leg Gait: Deferred Imaging - Results Cat Scan: Image Reviewed Problem List - Problems (1) Dizziness Assessment/Plan: questionable TIA. Orthostatic hypotension Stroke prevention 1. Neuro checks every 1 hour. 2. Increase by mouth fluid intake. 3. Holter monitor. 4. Check orthostasis to shift. 5. Baby aspirin. 6. Fall precautions. 7. Repeat CAT scan of the head in 48 hours. 8. Carotid Doppler Thank you very much for referring spatial for neurological consultation we'll follow the patient during the admission thank you Code(s): R42 - DIZZINESS AND GIDDINESS
--- NOTE | 2018-11-12 15:06 | CON.CARD ---
Consult Consult Specialty:: Cardiology Referred by:: Betty Reason for Consultation:: Dizziness - History of Present Illness Chief Complaint: dizzy History of Present Illness: The patient is a 78-year-old female,with a history of diabetes, hypertension, hyperlipidemia,stroke, now presenting with dizzy spells. As per the patient's aide, she was sitting in the chair got up and became dizzy and lightheaded. They decided to go to the emergency room. the patient is currently supine in no apparent distress.Admits to similar episodesin the recent past. She claims to be compliant with her blood pressure medications. The patient denies chest pains and shortness of breath. No palpitations. She is currently quite comfortable. Breathing normally. - History Source History Provided By: Patient, Medical Record Limitations to Obtaining History: No Limitations - Past Medical History RUNNER OUT: Yes: CVA (2012), Seizure, TIA (2013) Cardio/Vascular: Yes: HTN, Hyperlipdemia Endocrine: Yes: Diabetes Mellitus - Alcohol/Substance Use Hx Alcohol Use: No - Smoking History Smoking history: Never smoked Have you smoked in the past 12 months: No - Social History ADL: Independent History of Recent Travel: No Home Medications - Allergies Allergies/Adverse Reactions: Allergies Allergy/AdvReac Type Severity Reaction Status Date / Time No Known Allergies Allergy Verified 11/12/18 12:04 - Home Medications Home Medications: Ambulatory Orders Amlodipine Besylate [Norvasc -] 10 mg PO DAILY #30 tablet MDD 1 01/18/17 Ergocalciferol [Vitamin D2] 50,000 unit PO Q7D@1000 11/12/18 Glipizide Xl [Glucotrol Xl -] 5 mg PO BID 11/12/18 Losartan Potassium [Cozaar] 100 mg PO DAILY 11/12/18 Metoprolol Succinate [Toprol Xl] 12.5 mg PO DAILY 11/12/18 Review of Systems - Review of Systems Constitutional: reports: No Symptoms Eyes: reports: No Symptoms HENT: reports: No Symptoms Neck: reports: No Symptoms Cardiovascular: reports: No Symptoms Respiratory: reports: No Symptoms Gastrointestinal: reports: No Symptoms Genitourinary: reports: No Symptoms Breasts: reports: No Symptoms Reported Musculoskeletal: reports: No Symptoms Integumentary: reports: No Symptoms Neurological: reports: Dizziness, Unsteady Gait Endocrine: reports: No Symptoms Hematology/Lymphatic: reports: No Symptoms Psychiatric: reports: No Symptoms Vital Signs: Vital Signs Temperature 98.0 F 11/12/18 12:01 Pulse Rate 86 11/12/18 12:01 Respiratory Rate 16 11/12/18 12:01 Blood Pressure 152/78 11/12/18 12:01 O2 Sat by Pulse Oximetry (%) 94 L 11/12/18 12:01 Constitutional: Yes: Well Nourished, No Distress, Calm Eyes: Yes: WNL, Conjunctiva Clear, EOM Intact HENT: Yes: WNL, Atraumatic, Normocephalic Neck: Yes: WNL, Supple, Trachea Midline Respiratory: Yes: WNL, Regular, CTA Bilaterally Gastrointestinal: Yes: WNL, Normal Bowel Sounds, Soft Cardiovascular: Yes: WNL, Regular Rate and Rhythm JVD: No Carotid Bruit: No PMI: Non-Displaced Heart Sounds: Yes: S1, S2 Musculoskeletal: Yes: WNL Extremities: Yes: WNL Edema: No Peripheral Pulses: 1+ Left Carotid, 1+ Right Carotid, 1+ Left Femoral, 1+ Right Femoral, 1+ Left Popliteal, 1+ Right Popliteal, 1+ Left Doralis Pedis, 1+ Right Dorsalis Pedis Integumentary: Yes: WNL Neurological: Yes: Other (Dizziness) ...Motor Strength: WNL - Other Data Labs, Other Data: CBC, BMP 11/12/18 13:15 11/12/18 13:15 INR, PTT INR 1.00 (0.83-1.09) 11/12/18 13:15 Troponin, BNP 11/12/18 13:15 Troponin I < 0.02 Troponin, BNP 11/12/18 13:15 Troponin I < 0.02 Assessment/Plan The patient is a 78-year-old female,with a history of diabetes, hypertension, hyperlipidemia,stroke, now presenting with dizzy spells. As per the patient's aide, she was sitting in the chair got up and became dizzy and lightheaded. They decided to go to the emergency room. the patient is currently supine in no apparent distress.Admits to similar episodesin the recent past. She claims to be compliant with her blood pressure medications. The patient denies chest pains and shortness of breath. No palpitations. She is currently quite comfortable. Breathing normally. there is no evidence of ischemia nor acute coronary syndrome. Most likelyorthostatic,polypharmacyand possibly dehydration. would hydrate with normal saline for a total of 1 L. Please perform orthostatics. Adjust medications accordingly. No need for cardiac monitoring at this point. no need for further cardiac workup at this point. Please do not hesitate to call us PRN.
[2018-11-12 17:44] VITALS: BMI 24.9
[2018-11-12] MEDS ORDERED: PNEUMOC 13-VAL CONJ-DIP CRM/PF 0.5 ML DISP.SYRIN IM ONE (18:30)
[2018-11-13] MEDS ORDERED: PATIENT'S OWN MEDICATION (NON-FORMULARY) (Losartan Potassium [Cozaar] 100 MG) PO SCH (10:00)
[2018-11-13] MEDS ORDERED: metoPROLOL SUCCINATE 25 MG TAB.SR.24H (FP) PO SCH (10:00)
[2018-11-13] MEDS ORDERED: amLODIPine BESYLATE 10 MG TABLET (FP) PO SCH (10:00)
[2018-11-13] MEDS ORDERED: amLODIPine BESYLATE 10 MG TABLET (FP) PO ONE (11:31)
[2018-11-13] MEDS: hydrALAZINE HCL 25 MG TABLET (FP) PO SCH ×2 (11:45→21:16)
--- NOTE | 2018-11-13 13:43 | HP ---
Admitting History and Physical - Primary Care Physician PCP: Fawad Hernández - Admission Chief Complaint: brought in for dizziness History of Present Illness: The patient is a 78 year old female, with a significant past medical history of HTN, CVA (2012, with residual poor vision), diabetes and HLD, who presents to the ED for evaluation of dizziness for 2 days. Patient is a poor historian, her aid provides history at bedside. Aid notes that the patient has been complaining that she feels dizzy, as if she is going to pass out. She typically ambulates with a cane at baseline, but has been clinging to her aid because she feels like she is off-balance and going to fall. Aid notes she seems to be overwhelmed, and will not let her leave when her shift is over. Patient endorses numbness and tingling of the left hand, but is unsure of the duration of its presence. She denies any pain diffusely at this time. Patient was supposed to follow up with machine stacker this morning, but came to the ED for evaluation instead. She has not followed up with her neurologist at this time. 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: CVA (2012), Seizure, TIA (2013) Cardiovascular: Yes: HTN, Hyperlipdemia Endocrine: Yes: Diabetes Mellitus - Smoking History Smoking history: Never smoked Have you smoked in the past 12 months: No - Alcohol/Substance Use Hx Alcohol Use: No - Social History ADL: Independent History of Recent Travel: No Home Medications - Allergies Allergies/Adverse Reactions: Allergies Allergy/AdvReac Type Severity Reaction Status Date / Time No Known Allergies Allergy Verified 11/12/18 12:04 - Home Medications Home Medications: Ambulatory Orders Amlodipine Besylate [Norvasc -] 10 mg PO DAILY #30 tablet MDD 1 01/18/17 Ergocalciferol [Vitamin D2] 50,000 unit PO Q7D@1000 11/12/18 Glipizide Xl [Glucotrol Xl -] 5 mg PO BID 11/12/18 Losartan Potassium [Cozaar] 100 mg PO DAILY 11/12/18 Metoprolol Succinate [Toprol Xl] 12.5 mg PO DAILY 11/12/18 Physical Examination Vital Signs: Vital Signs Temperature 98.3 F 11/13/18 06:00 Pulse Rate 68 11/13/18 06:00 Respiratory Rate 18 11/13/18 08:57 Blood Pressure 175/76 H 11/13/18 06:00 O2 Sat by Pulse Oximetry (%) 94 L 11/13/18 08:57 Labs: CBC, BMP 11/12/18 13:15 11/12/18 13:15 Imaging - Results Cat Scan: Report Reviewed (no acute pathology) Problem List - Problems (1) Ifike-ls-naifanx renal failure Assessment/Plan: renal consult ivf renal sono Code(s): N17.9 - ACUTE KIDNEY FAILURE, UNSPECIFIED; N18.9 - CHRONIC KIDNEY DISEASE, UNSPECIFIED (2) Dizziness Assessment/Plan: brain MRI w/o contrast meclizine prn orthostatic vital done PTeval b12,iron panel,hgba1c Code(s): R42 - DIZZINESS AND GIDDINESS (3) HTN (hypertension) Assessment/Plan: hydralazine and norvasc Code(s): I10 - ESSENTIAL (PRIMARY) HYPERTENSION (4) Diabetes Assessment/Plan: sliding scale bgm hgba1c Code(s): E11.9 - TYPE 2 DIABETES MELLITUS WITHOUT COMPLICATIONS Qualifiers: Diabetes mellitus type: type 2
[2018-11-13] MEDS ORDERED: SODIUM CHLORIDE 1,000 ML IV SCH (13:45)
--- NOTE | 2018-11-13 14:08 | EKG ---
Test Reason : Blood Pressure : / mmHG Vent. Rate : 077 BPM Atrial Rate : 077 BPM P-R Int : 156 ms QRS Dur : 144 ms QT Int : 412 ms P-R-T Axes : 056 -08 108 degrees QTc Int : 466 ms NORMAL SINUS RHYTHM LEFT BUNDLE BRANCH BLOCK ABNORMAL ECG WHEN COMPARED WITH ECG OF 16-JAN-2017 20:14, LEFT BUNDLE BRANCH BLOCK IS NOW PRESENT Confirmed by LASHAUN MOJICA, PHUONG ([id number]) on 11/13/2018 2:07:35 PM Referred By: Confirmed By:PHUONG WILKS MD
--- NOTE | 2018-11-13 16:01 | ECHO ---
Name: REKHA CHEL Exam:Adult Echocardiogram Study Date: 11/13/2018 02:57 PM Age: 78 yrs Reason For Study: ef Height: 64 in Weight: 145 lb BSA: 1.7 m2 MMode/2D Measurements & Calculations IVSd: 1.3 cm Ao root diam: 2.8 cm LVIDd: 4.1 cm LA dimension: 3.3 cm LVIDs: 2.8 cm LVPWd: 1.3 cm LVPWs: 1.4 cm EDV(Teich): 72.4 ml ESV(Teich): 29.1 ml LVOT diam: 1.8 cm LAV (MOD-bp): 53.2 ml TAPSE: 2.2 cm RV S Steven: 17.3 cm/sec Doppler Measurements & Calculations MV E max steven: 92.2 cm/sec Ao V2 max: 206.2 cm/sec MV A max steven: 150.5 cm/sec Ao max P.0 mmHg MV E/A: 0.61 Ao V2 mean: 140.7 cm/sec MV dec time: 0.18 sec Ao mean P.2 mmHg Ao V2 VTI: 37.4 cm ROSA(I,D): 1.4 cm2 AI P1/2t: 410.4 msec ROSA(V,D): 1.4 cm2 AI max steven: 416.3 cm/sec LV V1 max P.0 mmHg AI max P.5 mmHg LV V1 mean P.7 mmHg AI dec slope: 297.1 cm/sec2 LV V1 max: 111.9 cm/sec LV V1 mean: 75.6 cm/sec LV V1 VTI: 19.7 cm SV(LVOT): 51.2 ml TR max steven: 282.1 cm/sec TR max P.5 mmHg RVSP(TR): 42.5 mmHg PA V2 max: 120.8 cm/sec Med Peak E' Steven: 4.7 cm/sec PA max P.8 mmHg Med E/e': 19.7 Lat Peak E' Steven: 6.6 cm/sec Lat E/e': 13.9 RAP systole: 10.0 mmHg Procedure A complete two-dimensional transthoracic echocardiogram was performed (2D, M-mode, Doppler and color flow Doppler). Left Ventricle There is mild concentric left ventricular hypertrophy. The left ventricular ejection fraction is norm al. Ejection Fraction = 60-65%. The left ventricular wall motion is normal. Right Ventricle The right ventricle is normal in size and function. Atria Normal left and right atrial size and function. Mitral Valve There is mild mitral regurgitation. Tricuspid Valve There is trace tricuspid regurgitation. Right ventricular systolic pressure is elevated at 40-50mmHg. Aortic Valve Mild valvular aortic stenosis. Mild aortic regurgitation. Pulmonic Valve There is no pulmonic valvular regurgitation. Great Vessels The aortic root is normal size. Pericardium/Pleura There is no pericardial effusion. Interpretation Summary There is mild concentric left ventricular hypertrophy. The left ventricular ejection fraction is normal. The right ventricle is normal in size and function. There is mild mitral regurgitation. There is trace tricuspid regurgitation. Right ventricular systolic pressure is elevated at 40-50mmHg. Mild aortic regurgitation. Mild valvular aortic stenosis. MD Mark Vazquez 11/13/2018 04:00 PM
--- NOTE | 2018-11-13 16:06 | CONSULT ---
Consult Consult Specialty:: Nephrology Reason for Consultation:: CKD - History of Present Illness Chief Complaint: dizziness History of Present Illness: Pt is a 78 year old female with pmhx of htn, cva, dm, ckd and hld who presents to the ER with dizziness. She says that she feels like she is going to pass out. She does not feel the room spinning. She was found to have elevated creatinine and I was called to evaluate her. She is a poor historian. She denies dysuria or hematuria. She denies nsaid use. She is accompanied by caregiver who says that she is not compliant with her meds. 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: CVA (2012), Seizure, TIA (2013) Cardio/Vascular: Yes: HTN, Hyperlipdemia Renal/: Yes: Renal Inusuff Endocrine: Yes: Diabetes Mellitus - Alcohol/Substance Use Hx Alcohol Use: No - Smoking History Smoking history: Never smoked Have you smoked in the past 12 months: No - Social History ADL: Independent History of Recent Travel: No Home Medications - Allergies Allergies/Adverse Reactions: Allergies Allergy/AdvReac Type Severity Reaction Status Date / Time No Known Allergies Allergy Verified 11/12/18 12:04 - Home Medications Home Medications: Ambulatory Orders Amlodipine Besylate [Norvasc -] 10 mg PO DAILY #30 tablet MDD 1 01/18/17 Ergocalciferol [Vitamin D2] 50,000 unit PO Q7D@1000 11/12/18 Glipizide Xl [Glucotrol Xl -] 5 mg PO BID 11/12/18 Losartan Potassium [Cozaar] 100 mg PO DAILY 11/12/18 Metoprolol Succinate [Toprol Xl] 12.5 mg PO DAILY 11/12/18 Family Medical History Family History: Denies Review of Systems - Review of Systems Constitutional: reports: Malaise. denies: Chills Eyes: reports: No Symptoms HENT: reports: No Symptoms Neck: reports: No Symptoms Cardiovascular: reports: No Symptoms Respiratory: reports: No Symptoms Gastrointestinal: reports: No Symptoms Genitourinary: reports: No Symptoms Musculoskeletal: reports: No Symptoms Integumentary: reports: No Symptoms Neurological: reports: Dizziness Endocrine: reports: No Symptoms Hematology/Lymphatic: reports: No Symptoms Psychiatric: reports: No Symptoms Physical Exam Vital Signs: Vital Signs Temperature 98.4 F 11/13/18 14:00 Pulse Rate 82 11/13/18 14:00 Respiratory Rate 18 11/13/18 08:57 Blood Pressure 152/72 11/13/18 14:00 O2 Sat by Pulse Oximetry (%) 94 L 11/13/18 08:57 Constitutional: Yes: Anxious Eyes: Yes: Conjunctiva Clear HENT: Yes: Atraumatic Neck: Yes: Supple Cardiovascular: Yes: S1, S2 Respiratory: Yes: CTA Bilaterally Gastrointestinal: Yes: Soft ...Rectal Exam: Yes: Sphincter Tone Normal Musculoskeletal: Yes: WNL Edema: No Neurological: Yes: Oriented Psychiatric: Yes: Agitated Labs: CBC, BMP 11/12/18 13:15 11/12/18 13:15 Laboratory Tests 01/16/17 01/17/17 01/18/17 20:22 12:27 06:30 Creatinine 1.8 H D 1.5 H 1.7 H 11/12/18 13:15 Creatinine 2.0 H Imaging - Results Chest X-ray: Report Reviewed Problem List - Problems (1) Vnrqz-dw-tadjbsz renal failure Code(s): N17.9 - ACUTE KIDNEY FAILURE, UNSPECIFIED; N18.9 - CHRONIC KIDNEY DISEASE, UNSPECIFIED (2) Diabetes Code(s): E11.9 - TYPE 2 DIABETES MELLITUS WITHOUT COMPLICATIONS Qualifiers: Diabetes mellitus type: type 2 (3) Dizziness Code(s): R42 - DIZZINESS AND GIDDINESS (4) HTN (hypertension) Code(s): I10 - ESSENTIAL (PRIMARY) HYPERTENSION Assessment/Plan Current Medications Generic Name Dose Route Start Last Admin Trade Name Lukeq PRN Reason Stop Dose Admin Heparin Sodium (Porcine) 5,000 unit 11/13/18 18:00 Heparin - SQ Q8H-IV IRMA Hydralazine HCl 25 mg 11/13/18 11:45 11/13/18 11:45 Apresoline - PO 25 mg BID IRMA Administration Sodium Chloride 1,000 mls @ 75 mls/hr 11/13/18 13:45 11/13/18 15:16 Normal Saline - IV 75 mls/hr ASDIR IRMA Administration Insulin Aspart 1 vial 11/13/18 16:30 Novolog Vial Sliding Scale - SQ ACHS IRMA Protocol Impression 1. CKD 2. HTN 3. DM 4. CVA 5. dizziness Plan - change fluids to 1/2 ns and decrease rate - repeat labs in am - check ua - check renal ultrasound - monitor bp - asked caregiver to bring in meds for review
--- NOTE | 2018-11-13 16:19 | EKG ---
Test Reason : Blood Pressure : / mmHG Vent. Rate : 085 BPM Atrial Rate : 085 BPM P-R Int : 154 ms QRS Dur : 142 ms QT Int : 392 ms P-R-T Axes : 056 -12 139 degrees QTc Int : 466 ms NORMAL SINUS RHYTHM POSSIBLE LEFT ATRIAL ENLARGEMENT LEFT BUNDLE BRANCH BLOCK ABNORMAL ECG WHEN COMPARED WITH ECG OF 12-NOV-2018 13:48, NO SIGNIFICANT CHANGE WAS FOUND Confirmed by LASHAUN MOJICA, PHUONG ([id number]) on 11/13/2018 4:19:49 PM Referred By: Confirmed By:PHUONG WILKS MD
[2018-11-13] MEDS: INSULIN SLIDING SCALE (NOVOLOG) 1 VIAL SQ SCH ×2 (16:31→21:13)
[2018-11-13 17:19] LABS: IRON SERUM 41 ug/dL (50-175); TOTAL IRON BINDING CAPACITY 234 ug/dL (250-450)
[2018-11-13] MEDS ORDERED: SODIUM CHLORIDE 0.45% 1,000 ML IV SCH (18:00)
[2018-11-13] MEDS: HEPARIN NA (PORCINE) 5,000 UNITS/ML 1ML VIAL SQ SCH (18:04)
[2018-11-14] MEDS: HEPARIN NA (PORCINE) 5,000 UNITS/ML 1ML VIAL SQ SCH ×3 (01:30→17:54)
[2018-11-14] MEDS: INSULIN SLIDING SCALE (NOVOLOG) 1 VIAL SQ SCH ×4 (07:03→22:17)
[2018-11-14 07:44] LABS: ALBUMIN 3.2 g/dl (3.4-5.0); BILIRUBIN,TOTAL 0.6 mg/dL (0.2-1); BLOOD UREA NITROGEN 42.6 mg/dL (7-18); CALCIUM 8.3 mg/dL (8.5-10.1); CREATININE 1.6 mg/dL (0.55-1.3); POTASSIUM 4.5 mmol/L (3.5-5.1); TOT PROT 6.5 g/dl (6.4-8.2)
[2018-11-14] MEDS: hydrALAZINE HCL 25 MG TABLET (FP) PO SCH (10:32)
--- NOTE | 2018-11-14 13:10 | PN ---
Progress Note, Physician Chief Complaint: patient is confused she claims she has not seen an doctor for one week since she is in hospital and says she is very dizzy even when sitting and BP was taken supine 157/67 sitting 148/77 standing 122/62 patient doesnot remember seeing me she walked 200 feet with walker - Current Medication List Current Medications: Active Medications Heparin Sodium (Porcine) (Heparin -) 5,000 unit SQ Q8H-IV IRMA Last Admin: 11/14/18 10:32 Dose: 5,000 unit Hydralazine HCl (Apresoline -) 25 mg PO BID IRMA Last Admin: 11/14/18 10:32 Dose: 25 mg Sodium Chloride (1/2 Normal Saline) 1,000 mls @ 42 mls/hr IV ASDIR [facility] Last Admin: 11/13/18 18:04 Dose: 42 mls/hr Insulin Aspart (Novolog Vial Sliding Scale -) 1 vial SQ ACHS [facility]; Protocol Last Admin: 11/14/18 11:54 Dose: Not Given - Objective Vital Signs: Vital Signs Temperature 98.7 F 11/14/18 06:00 Pulse Rate 60 11/14/18 09:00 Respiratory Rate 18 11/14/18 09:00 Blood Pressure 142/76 11/14/18 09:00 O2 Sat by Pulse Oximetry (%) 93 L 11/13/18 21:00 Constitutional: Yes: Calm Cardiovascular: Yes: Regular Rate and Rhythm, S1, S2 Respiratory: Yes: CTA Bilaterally Gastrointestinal: Yes: Normal Bowel Sounds, Soft Edema: No Labs: CBC, BMP 11/12/18 13:15 11/14/18 05:25 INR, PTT INR 1.00 (0.83-1.09) 11/12/18 13:15 Problem List - Problems (1) HTN (hypertension) Assessment/Plan: stop hydralazine and norvsac bc of dizziness start losartan 100mg and toprol 12.5 xl Code(s): I10 - ESSENTIAL (PRIMARY) HYPERTENSION (2) Nqult-xh-vqwnwww renal failure Assessment/Plan: leonardo rstart losartan ivf renal sono Code(s): N17.9 - ACUTE KIDNEY FAILURE, UNSPECIFIED; N18.9 - CHRONIC KIDNEY DISEASE, UNSPECIFIED (3) Dizziness Assessment/Plan: stop hydralazine nad norvasc neurology follow up maybe secondary to autonomic dysfunction check b12 levels ct head ordered for today Code(s): R42 - DIZZINESS AND GIDDINESS (4) Diabetes Assessment/Plan: sliding scale bgm hgba1c 6.8 Code(s): E11.9 - TYPE 2 DIABETES MELLITUS WITHOUT COMPLICATIONS Qualifiers: Diabetes mellitus type: type 2
--- NOTE | 2018-11-14 14:56 | PN ---
Progress Note, Physician History of Present Illness: Pt seen and examined at bedside. She is awake and alert. She remains confused. - Current Medication List Current Medications: Active Medications Heparin Sodium (Porcine) (Heparin -) 5,000 unit SQ Q8H-IV IRMA Last Admin: 11/14/18 10:32 Dose: 5,000 unit Sodium Chloride (1/2 Normal Saline) 1,000 mls @ 42 mls/hr IV ASDIR [facility]MA Last Admin: 11/13/18 18:04 Dose: 42 mls/hr Insulin Aspart (Novolog Vial Sliding Scale -) 1 vial SQ ACHS [facility]; Protocol Last Admin: 11/14/18 11:54 Dose: Not Given Losartan Potassium (Cozaar -) 100 mg PO DAILY [facility] Metoprolol Succinate (Toprol Xl -) 12.5 mg PO DAILY [facility] - Objective Vital Signs: Vital Signs Temperature 98.7 F 11/14/18 06:00 Pulse Rate 60 11/14/18 09:00 Respiratory Rate 18 11/14/18 09:00 Blood Pressure 142/76 11/14/18 09:00 O2 Sat by Pulse Oximetry (%) 93 L 11/13/18 21:00 Constitutional: Yes: Calm HENT: Yes: Atraumatic Cardiovascular: Yes: S1, S2 Respiratory: Yes: CTA Bilaterally Gastrointestinal: Yes: Soft Genitourinary: Yes: WNL Musculoskeletal: Yes: WNL Edema: No Neurological: Yes: Confusion Psychiatric: Yes: Oriented Labs: CBC, BMP 11/12/18 13:15 11/14/18 05:25 INR, PTT INR 1.00 (0.83-1.09) 11/12/18 13:15 Problem List - Problems (1) Gfabc-ww-itbebdi renal failure Code(s): N17.9 - ACUTE KIDNEY FAILURE, UNSPECIFIED; N18.9 - CHRONIC KIDNEY DISEASE, UNSPECIFIED (2) Diabetes Code(s): E11.9 - TYPE 2 DIABETES MELLITUS WITHOUT COMPLICATIONS Qualifiers: Diabetes mellitus type: type 2 (3) Dizziness Code(s): R42 - DIZZINESS AND GIDDINESS (4) HTN (hypertension) Code(s): I10 - ESSENTIAL (PRIMARY) HYPERTENSION Assessment/Plan Current Medications Generic Name Dose Route Start Last Admin Trade Name Freq PRN Reason Stop Dose Admin Heparin Sodium (Porcine) 5,000 unit 11/13/18 18:00 11/14/18 10:32 Heparin - SQ 5,000 unit Q8H-IV IRMA Administration Sodium Chloride 1,000 mls @ 42 mls/hr 11/13/18 18:00 11/13/18 18:04 1/2 Normal Saline IV 42 mls/hr ASDIR IRMA Administration Insulin Aspart 1 vial 11/13/18 16:30 11/14/18 11:54 Novolog Vial Sliding Scale - SQ Not Given ACHS IRMA Protocol Losartan Potassium 100 mg 11/15/18 10:00 Cozaar - PO DAILY IR[facility] Metoprolol Succinate 12.5 mg 11/14/18 14:00 Toprol Xl - PO DAILY IRMA Impression 1. CKD 2. HTN 3. DM 4. CVA 5. dizziness Plan - renal function improving - can d/c fluids - can restart arb - monitor bp - hydralazine on hold - restart metoprolol - dizziness workup in progress - follow renal ultrasound
--- NOTE | 2018-11-14 15:46 | PN ---
Progress Note, Physician History of Present Illness: events noted Chart reviewed Seen on the floor No significant change No episode of dizziness or lightheadedness Repeat CAT scan of the head showed no significant change I reviewed the images - Current Medication List Current Medications: Active Medications Heparin Sodium (Porcine) (Heparin -) 5,000 unit SQ Q8H-IV IRMA Last Admin: 11/14/18 10:32 Dose: 5,000 unit Insulin Aspart (Novolog Vial Sliding Scale -) 1 vial SQ ACHS [facility]; Protocol Last Admin: 11/14/18 11:54 Dose: Not Given Losartan Potassium (Cozaar -) 100 mg PO DAILY [facility] Metoprolol Succinate (Toprol Xl -) 12.5 mg PO DAILY [facility] - Objective Vital Signs: Vital Signs Temperature 98.7 F 11/14/18 06:00 Pulse Rate 60 11/14/18 09:00 Respiratory Rate 18 11/14/18 09:00 Blood Pressure 142/76 11/14/18 09:00 O2 Sat by Pulse Oximetry (%) 93 L 11/13/18 21:00 Constitutional: Yes: Well Nourished Eyes: Yes: WNL Neurological: Yes: Alert, Oriented, Babinski negative ...Motor Strength: WNL Labs: CBC, BMP 11/12/18 13:15 11/14/18 05:25 INR, PTT INR 1.00 (0.83-1.09) 11/12/18 13:15 Problem List - Problems (1) Dizziness Assessment/Plan: 1. Fall precautions. 2. Neurologically okay to go home. 3. Follow-up with neurology for memory problem. 4. Fall precautions. 5. Visiting nurse services Code(s): R42 - DIZZINESS AND GIDDINESS
[2018-11-14] MEDS: metoPROLOL SUCCINATE 25 MG TAB.SR.24H (FP) PO SCH (16:36)
[2018-11-15] MEDS: HEPARIN NA (PORCINE) 5,000 UNITS/ML 1ML VIAL SQ SCH ×3 (01:59→17:49)
[2018-11-15] MEDS: INSULIN SLIDING SCALE (NOVOLOG) 1 VIAL SQ SCH ×4 (07:00→21:28)
--- NOTE | 2018-11-15 10:28 | PN ---
Progress Note, Physician Chief Complaint: Dizziness CKD History of Present Illness: Previous notes and events reviewed awake and alert NAD continue to have dizziness renal function improving - Current Medication List Current Medications: Active Medications Heparin Sodium (Porcine) (Heparin -) 5,000 unit SQ Q8H-IV IRMA Last Admin: 11/15/18 01:59 Dose: 5,000 unit Insulin Aspart (Novolog Vial Sliding Scale -) 1 vial SQ [facility]; Protocol Last Admin: 11/14/18 22:17 Dose: Not Given Losartan Potassium (Cozaar -) 100 mg PO DAILY [facility] Metoprolol Succinate (Toprol Xl -) 12.5 mg PO DAILY [facility] Last Admin: 11/14/18 16:36 Dose: 12.5 mg - Objective Vital Signs: Vital Signs Temperature 98.4 F 11/15/18 01:39 Pulse Rate 68 11/15/18 01:39 Respiratory Rate 18 11/15/18 01:39 Blood Pressure 170/74 11/15/18 01:39 O2 Sat by Pulse Oximetry (%) 92 L 11/14/18 21:00 Constitutional: Yes: No Distress, Calm Eyes: Yes: Conjunctiva Clear HENT: Yes: Atraumatic Cardiovascular: Yes: Regular Rate and Rhythm Respiratory: Yes: Regular, CTA Bilaterally Gastrointestinal: Yes: Normal Bowel Sounds, Soft Musculoskeletal: Yes: Muscle Weakness Extremities: Yes: WNL Edema: No Neurological: Yes: Alert, Oriented Psychiatric: Yes: Alert, Oriented Labs: CBC, BMP 11/12/18 13:15 11/14/18 05:25 INR, PTT INR 1.00 (0.83-1.09) 11/12/18 13:15 Problem List - Problems (1) Ekktq-gg-yllkhou renal failure Assessment/Plan: -Renal on board -BUN/Cr 42.6/1.6 -Renal US shows mild atrophic kidneys with no evidence of hydronephrosis or acute pathology -monitor renal function daily Code(s): N17.9 - ACUTE KIDNEY FAILURE, UNSPECIFIED; N18.9 - CHRONIC KIDNEY DISEASE, UNSPECIFIED (2) Diabetes Assessment/Plan: -[facility] -HgA1c 6.8% Code(s): E11.9 - TYPE 2 DIABETES MELLITUS WITHOUT COMPLICATIONS Qualifiers: Diabetes mellitus type: type 2 (3) Dizziness Assessment/Plan: -Neurology and Cardiology on board -Head CT scan shows no evidence of acute intracranial hemorrhage, hydrocephalus , chronic supratentorial infarcts, extensive supratentorial white matter microangiopathic ischemic changes, gliosis -repeat CT scan shows no changes -Neuro checks -Orthostatic BP -Fall precautions -Carotid US Code(s): R42 - DIZZINESS AND GIDDINESS (4) HTN (hypertension) Assessment/Plan: -Losartan and Metoprolol -low Na diet Code(s): I10 - ESSENTIAL (PRIMARY) HYPERTENSION (5) Unsteady gait Assessment/Plan: -Fall precautions -PT Code(s): R26.81 - UNSTEADINESS ON FEET Assessment/Plan see problem list dvt ppx
[2018-11-15] MEDS: LOSARTAN POTASSIUM 50 MG TABLET (FP) PO SCH (10:37)
[2018-11-15] MEDS: metoPROLOL SUCCINATE 25 MG TAB.SR.24H (FP) PO SCH (10:37)
[2018-11-15 12:44] LABS: BASO % 0.7 % (0-2.0); EOS % 3.5 % (0-4.5); HEMATOCRIT 31.5 % (32.4-45.2); HEMOGLOBIN 10.3 GM/dL (10.7-15.3); LYMPH % 23.9 % (8-40); MCH 29.6 pg (25.7-33.7); MCHC 32.9 g/dl (32.0-36.0); MEAN CELL VOLUME 90.1 fl (80-96); MEAN PLT VOLUME 8.3 fl (7.5-11.1); MONO % 7.3 % (3.8-10.2); NEUT % 64.6 % (42.8-82.8); PLATELET COUNT 290 K/MM3 (134-434); RBC 3.49 M/mm3 (3.60-5.2); RDW 14.4 % (11.6-15.6); WHITE BLOOD COUNT 7.7 K/mm3 (4.0-10.0)
[2018-11-15 13:06] LABS: ALBUMIN 3.4 g/dl (3.4-5.0); BILIRUBIN,TOTAL 0.2 mg/dL (0.2-1); BLOOD UREA NITROGEN 40.7 mg/dL (7-18); CALCIUM 8.7 mg/dL (8.5-10.1); CREATININE 1.5 mg/dL (0.55-1.3); TOT PROT 7.1 g/dl (6.4-8.2)
[2018-11-15] MEDS ORDERED: MECLIZINE HCL 12.5 MG TABLET PO PRN (14:31)
--- NOTE | 2018-11-15 14:35 | PN ---
Progress Note, Physician History of Present Illness: events noted Chart reviewed Seen on [facility] floor Alert awake Legally blind No headache Mild dizziness - Current Medication List Current Medications: Active Medications Heparin Sodium (Porcine) (Heparin -) 5,000 unit SQ Q8H-IV [facility] Last Admin: 11/15/18 10:38 Dose: 5,000 unit Insulin Aspart (Novolog Vial Sliding Scale -) 1 vial SQ ACHS [facility]; Protocol Last Admin: 11/15/18 12:18 Dose: Not Given Losartan Potassium (Cozaar -) 100 mg PO DAILY [facility] Last Admin: 11/15/18 10:37 Dose: 100 mg Metoprolol Succinate (Toprol Xl -) 12.5 mg PO DAILY [facility] Last Admin: 11/15/18 10:37 Dose: 12.5 mg - Objective Vital Signs: Vital Signs Temperature 98.7 F 11/15/18 14:03 Pulse Rate 79 11/15/18 14:03 Respiratory Rate 18 11/15/18 01:39 Blood Pressure 148/56 L 11/15/18 14:03 O2 Sat by Pulse Oximetry (%) 92 L 11/14/18 21:00 Constitutional: Yes: Well Nourished Eyes: Yes: WNL HENT: Yes: WNL Neurological: Yes: Alert, Oriented, Babinski negative ...Motor Strength: WNL Labs: CBC, BMP 11/15/18 11:50 11/15/18 11:50 INR, PTT INR 1.00 (0.83-1.09) 11/12/18 13:15 Problem List - Problems (1) Dizziness Assessment/Plan: 1. baby ASA 2 OOB to [facility] chair 3. Meclizine 4. Increase Po fluid intake Code(s): R42 - DIZZINESS AND GIDDINESS
--- NOTE | 2018-11-15 17:10 | PN ---
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 CKD 2. HTN 3. DM 4. CVA 5. dizziness Current Medications Aspirin (Asa -) 81 mg PO DAILY [facility] Heparin Sodium (Porcine) (Heparin -) 5,000 unit SQ Q8H-IV [facility] Last Admin: 11/15/18 10:38 Dose: 5,000 unit Insulin Aspart (Novolog Vial Sliding Scale -) 1 vial SQ ACHS [facility]; Protocol Last Admin: 11/15/18 12:18 Dose: Not Given Losartan Potassium (Cozaar -) 100 mg PO DAILY [facility] Last Admin: 11/15/18 10:37 Dose: 100 mg Meclizine HCl (Antivert -) 12.5 mg PO BID PRN PRN Reason: VERTIGO Metoprolol Succinate (Toprol Xl -) 12.5 mg PO DAILY [facility] Last Admin: 11/15/18 10:37 Dose: 12.5 mg Last Vital Signs Temp Pulse Resp BP Pulse Ox 98.7 F 79 18 148/56 L 92 L 11/15/18 14:03 11/15/18 14:03 11/15/18 01:39 11/15/18 14:03 11/14/18 21:00 CBC, BMP 11/15/18 11:50 11/15/18 11:50 IMP CKD stable slight trend toward improvement on today's lab Plan-continue current mgmnt
[2018-11-16] MEDS: HEPARIN NA (PORCINE) 5,000 UNITS/ML 1ML VIAL SQ SCH ×3 (02:03→18:01)
[2018-11-16] MEDS: INSULIN SLIDING SCALE (NOVOLOG) 1 VIAL SQ SCH ×4 (06:13→21:47)
[2018-11-16 07:34] LABS: HEMATOCRIT 30.3 % (32.4-45.2); HEMOGLOBIN 9.7 GM/dL (10.7-15.3); MCH 29.1 pg (25.7-33.7); MCHC 32.1 g/dl (32.0-36.0); MEAN CELL VOLUME 90.7 fl (80-96); MEAN PLT VOLUME 7.9 fl (7.5-11.1); PLATELET COUNT 258 K/MM3 (134-434); RBC 3.34 M/mm3 (3.60-5.2); WHITE BLOOD COUNT 7.4 K/mm3 (4.0-10.0)
--- NOTE | 2018-11-16 09:55 | PN ---
Progress Note, Physician Chief Complaint: Dizziness CKD History of Present Illness: Previous notes and events reviewed awake and alert NAD continue to have dizziness denies chest pain or SOB - Current Medication List Current Medications: Active Medications Aspirin (Asa -) 81 mg PO DAILY [facility] Heparin Sodium (Porcine) (Heparin -) 5,000 unit SQ Q8H-IV [facility] Last Admin: 11/16/18 02:03 Dose: 5,000 unit Insulin Aspart (Novolog Vial Sliding Scale -) 1 vial SQ [facility]; Protocol Last Admin: 11/16/18 06:13 Dose: Not Given Losartan Potassium (Cozaar -) 100 mg PO DAILY [facility] Last Admin: 11/15/18 10:37 Dose: 100 mg Meclizine HCl (Antivert -) 12.5 mg PO BID PRN PRN Reason: VERTIGO Metoprolol Succinate (Toprol Xl -) 12.5 mg PO DAILY [facility] Last Admin: 11/15/18 10:37 Dose: 12.5 mg - Objective Vital Signs: Vital Signs Temperature 98.1 F 11/16/18 02:16 Pulse Rate 71 11/16/18 02:16 Respiratory Rate 18 11/16/18 02:16 Blood Pressure 132/69 11/16/18 02:16 O2 Sat by Pulse Oximetry (%) 97 11/15/18 21:00 Constitutional: Yes: No Distress, Calm Eyes: Yes: Conjunctiva Clear HENT: Yes: Atraumatic Cardiovascular: Yes: Regular Rate and Rhythm Respiratory: Yes: Regular, CTA Bilaterally Gastrointestinal: Yes: Normal Bowel Sounds, Soft Musculoskeletal: Yes: Muscle Weakness Extremities: Yes: WNL Edema: No Neurological: Yes: Alert Psychiatric: Yes: Alert Labs: CBC, BMP 11/16/18 06:30 11/15/18 11:50 INR, PTT INR 1.00 (0.83-1.09) 11/12/18 13:15 Problem List - Problems (1) [id number] renal failure Assessment/Plan: -Renal on board -BUN/Cr 40.7/1.5 -Renal US shows mild atrophic kidneys with no evidence of hydronephrosis or acute pathology -monitor renal function daily Code(s): N17.9 - ACUTE KIDNEY FAILURE, UNSPECIFIED; N18.9 - CHRONIC KIDNEY DISEASE, UNSPECIFIED (2) Diabetes Assessment/Plan: -[facility] -HgA1c 6.8% Code(s): E11.9 - TYPE 2 DIABETES MELLITUS WITHOUT COMPLICATIONS Qualifiers: Diabetes mellitus type: type 2 (3) Dizziness Assessment/Plan: -Neurology and Cardiology on board -Head CT scan shows no evidence of acute intracranial hemorrhage, hydrocephalus , chronic supratentorial infarcts, extensive supratentorial white matter microangiopathic ischemic changes, gliosis -repeat CT scan shows no changes -Neuro checks -Orthostatic BP -Fall precautions -Carotid US shows no evidence of hemodynamically significant stenosis -Meclizine Code(s): R42 - DIZZINESS AND GIDDINESS (4) HTN (hypertension) Assessment/Plan: -Losartan and Metoprolol -low Na diet Code(s): I10 - ESSENTIAL (PRIMARY) HYPERTENSION (5) Unsteady gait Assessment/Plan: -Fall precautions -PT Code(s): R26.81 - UNSTEADINESS ON FEET Assessment/Plan see problem list dvt ppx if CMP tomorrow continue to show downtrend in renal function begin d/c planning
[2018-11-16] MEDS: metoPROLOL SUCCINATE 25 MG TAB.SR.24H (FP) PO SCH (10:16)
[2018-11-16] MEDS: ASPIRIN 325 MG TABLET PO SCH (10:17)
[2018-11-16] MEDS: LOSARTAN POTASSIUM 50 MG TABLET (FP) PO SCH (10:17)
--- NOTE | 2018-11-16 13:20 | CON.PSY ---
Psychiatry Consult Chief Complaint: 78 Year old female who lives on her own and manages pretty well admitted with dizziness and ?forgetfulness. Patient seen for Psych eval. She relates well , watching a [employer] game and appears to be comprehending well. I a want to go home as soon as possible. Symptoms: reports: Anxiety - Previous Psychiatric Treatment Outpatient: None Inpatient: None - Previous Substance Abuse Treatment Outpatient: None Inpatient: None - Current Medications Current Medications: Active Medications Aspirin (Asa -) 81 mg PO DAILY [facility] Last Admin: 11/16/18 10:17 Dose: 81 mg Heparin Sodium (Porcine) (Heparin -) 5,000 unit SQ Q8H-IV [facility] Last Admin: 11/16/18 10:17 Dose: 5,000 unit Insulin Aspart (Novolog Vial Sliding Scale -) 1 vial SQ ACHS [facility]; Protocol Last Admin: 11/16/18 12:12 Dose: Not Given Losartan Potassium (Cozaar -) 100 mg PO DAILY [facility] Last Admin: 11/16/18 10:17 Dose: 100 mg Meclizine HCl (Antivert -) 12.5 mg PO BID PRN PRN Reason: VERTIGO Metoprolol Succinate (Toprol Xl -) 12.5 mg PO DAILY [facility] Last Admin: 11/16/18 10:16 Dose: 12.5 mg - Allergies Allergies: Allergies Allergy/AdvReac Type Severity Reaction Status Date / Time No Known Allergies Allergy Verified 11/12/18 12:04 - Current Living Status Usual Living Arrangement: Alone - Current Mental Status Evaluation Appearance: Well Groomed Attitude: Cooperative - Affect Affect: Full Range Appropriateness: Appropriate to Content - Mood Mood: Euthymic - Speech/Language Expressive: Coherent - Psychomotor Activity Psychomotor Activity: Normal - Thought Process Thought Process: Intact - Thought Content Hallucinations: Absent Delusions: Absent - Self Perception Self Perception: No Impairment - Cognition Attention: Alert Orientation: Time Memory, Immediate Recall: Intact Memory, Short Term: 3/3 Memory, Remote with Promptin/3 - Concentration Serial Sevens Intact: No Simple Calculations Intact: Yes - Abstraction Proverb Interpretation: Intact Judgement: Intact - Insight Insight: Intact - Impulse Control Impulse Control: Good Control - Suicidal Ideation Suicidal Ideation: No - Homicidal Ideation Homicidal Ideation: No Assessment/Plan 1) No Psych meds needed.
--- NOTE | 2018-11-16 20:31 | PN ---
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 CKD 2. HTN 3. DM 4. CVA 5. dizziness Current Medications Aspirin (Asa -) 81 mg PO DAILY [facility] Last Admin: 11/16/18 10:17 Dose: 81 mg Heparin Sodium (Porcine) (Heparin -) 5,000 unit SQ Q8H-IV [facility] Last Admin: 11/16/18 18:01 Dose: 5,000 unit Insulin Aspart (Novolog Vial Sliding Scale -) 1 vial SQ ACHS [facility]; Protocol Last Admin: 11/16/18 18:02 Dose: Not Given Losartan Potassium (Cozaar -) 100 mg PO DAILY [facility] Last Admin: 11/16/18 10:17 Dose: 100 mg Meclizine HCl (Antivert -) 12.5 mg PO BID PRN PRN Reason: VERTIGO Metoprolol Succinate (Toprol Xl -) 12.5 mg PO DAILY [facility] Last Admin: 11/16/18 10:16 Dose: 12.5 mg Last Vital Signs Temp Pulse Resp BP Pulse Ox 98.6 F 80 18 143/54 L 97 11/16/18 14:00 11/16/18 14:00 11/16/18 10:00 11/16/18 14:00 11/16/18 10:00 Lungs clear Heart reg Abd soft Ext no edema CBC, BMP 11/16/18 06:30 11/15/18 11:50 CBC, BMP 11/15/18 11:50 11/15/18 11:50 IMP CKD stable no new labs today Plan-continue current mgmnt f/u labs tomorrow
[2018-11-17] MEDS: HEPARIN NA (PORCINE) 5,000 UNITS/ML 1ML VIAL SQ SCH ×3 (01:06→17:28)
[2018-11-17] MEDS: INSULIN SLIDING SCALE (NOVOLOG) 1 VIAL SQ SCH ×4 (06:22→21:39)
[2018-11-17 07:22] LABS: HEMATOCRIT 28.9 % (32.4-45.2); HEMOGLOBIN 9.6 GM/dL (10.7-15.3); MCH 29.9 pg (25.7-33.7); MCHC 33.2 g/dl (32.0-36.0); MEAN CELL VOLUME 90.2 fl (80-96); MEAN PLT VOLUME 7.7 fl (7.5-11.1); PLATELET COUNT 251 K/MM3 (134-434); WHITE BLOOD COUNT 6.2 K/mm3 (4.0-10.0)
[2018-11-17 07:50] LABS: BILIRUBIN,TOTAL 0.4 mg/dL (0.2-1); BLOOD UREA NITROGEN 46.5 mg/dL (7-18); CALCIUM 8.3 mg/dL (8.5-10.1); CREATININE 1.6 mg/dL (0.55-1.3); POTASSIUM 4.4 mmol/L (3.5-5.1)
--- NOTE | 2018-11-17 09:54 | PN ---
Progress Note, Physician - Current Medication List Current Medications: Active Medications Aspirin (Asa -) 81 mg PO DAILY [facility] Last Admin: 11/16/18 10:17 Dose: 81 mg Heparin Sodium (Porcine) (Heparin -) 5,000 unit SQ Q8H-IV [facility] Last Admin: 11/17/18 01:06 Dose: 5,000 unit Insulin Aspart (Novolog Vial Sliding Scale -) 1 vial SQ [facility]; Protocol Last Admin: 11/17/18 06:22 Dose: Not Given Losartan Potassium (Cozaar -) 100 mg PO DAILY [facility] Last Admin: 11/16/18 10:17 Dose: 100 mg Meclizine HCl (Antivert -) 12.5 mg PO BID PRN PRN Reason: VERTIGO Metoprolol Succinate (Toprol Xl -) 12.5 mg PO DAILY [facility] Last Admin: 11/16/18 10:16 Dose: 12.5 mg - Objective Vital Signs: Vital Signs Temperature 98.1 F 11/17/18 02:00 Pulse Rate 66 11/17/18 02:00 Respiratory Rate 18 11/17/18 02:00 Blood Pressure 146/64 11/17/18 02:00 O2 Sat by Pulse Oximetry (%) 94 L 11/16/18 21:00 Cardiovascular: Yes: S1, S2 Respiratory: Yes: Regular, CTA Bilaterally Gastrointestinal: Yes: Normal Bowel Sounds, Soft Labs: CBC, BMP 11/17/18 06:45 11/17/18 06:00 INR, PTT INR 1.00 (0.83-1.09) 11/12/18 13:15 Assessment/Plan - Problems (1) Hqwyx-eq-jgebjak renal failure Assessment/Plan: -Renal on board -BUN/Cr 40.7/1.5 -Renal US shows mild atrophic kidneys with no evidence of hydronephrosis or acute pathology -monitor renal function daily Code(s): N17.9 - ACUTE KIDNEY FAILURE, UNSPECIFIED; N18.9 - CHRONIC KIDNEY DISEASE, UNSPECIFIED (2) Diabetes Assessment/Plan: -[facility] -HgA1c 6.8% Code(s): E11.9 - TYPE 2 DIABETES MELLITUS WITHOUT COMPLICATIONS Qualifiers: Diabetes mellitus type: type 2 (3) Dizziness Assessment/Plan: -Neurology and Cardiology on board -Head CT scan shows no evidence of acute intracranial hemorrhage, hydrocephalus , chronic supratentorial infarcts, extensive supratentorial white matter microangiopathic ischemic changes, gliosis -repeat CT scan shows no changes -Neuro checks -Orthostatic BP -Fall precautions -Carotid US shows no evidence of hemodynamically significant stenosis -Meclizine -PT Code(s): R42 - DIZZINESS AND GIDDINESS (4) HTN (hypertension) Assessment/Plan: -Losartan and Metoprolol -low Na diet Code(s): I10 - ESSENTIAL (PRIMARY) HYPERTENSION (5) Unsteady gait Assessment/Plan: -Fall precautions -PT Code(s): R26.81 - UNSTEADINESS ON FEET (6) Anemia Assessment/Plan: -W/u ordered--iron deficiency -stool for occult blood -GI
[2018-11-17] MEDS: metoPROLOL SUCCINATE 25 MG TAB.SR.24H (FP) PO SCH (10:43)
[2018-11-17] MEDS: LOSARTAN POTASSIUM 50 MG TABLET (FP) PO SCH (10:44)
[2018-11-17] MEDS: ASPIRIN 325 MG TABLET PO SCH (11:00)
[2018-11-17] MEDS: ASPIRIN 81 MG CHEWABLE TABLETS PO SCH (11:01)
--- NOTE | 2018-11-17 12:39 | PN ---
Progress Note, Physician History of Present Illness: Pt seen and examined at bedside. She is awake and alert. She denies shortness of breath. She is asking to go home. - Current Medication List Current Medications: Active Medications Aspirin (Asa -) 81 mg PO DAILY [facility] Last Admin: 11/17/18 11:01 Dose: 81 mg Heparin Sodium (Porcine) (Heparin -) 5,000 unit SQ Q8H-IV [facility] Last Admin: 11/17/18 10:44 Dose: 5,000 unit Insulin Aspart (Novolog Vial Sliding Scale -) 1 vial SQ ACHS [facility]; Protocol Last Admin: 11/17/18 12:06 Dose: Not Given Losartan Potassium (Cozaar -) 100 mg PO DAILY [facility] Last Admin: 11/17/18 10:44 Dose: 100 mg Meclizine HCl (Antivert -) 12.5 mg PO BID PRN PRN Reason: VERTIGO Metoprolol Succinate (Toprol Xl -) 12.5 mg PO DAILY [facility] Last Admin: 11/17/18 10:43 Dose: 12.5 mg - Objective Vital Signs: Vital Signs Temperature 98.1 F 11/17/18 02:00 Pulse Rate 66 11/17/18 02:00 Respiratory Rate 18 11/17/18 02:00 Blood Pressure 146/64 11/17/18 02:00 O2 Sat by Pulse Oximetry (%) 94 L 11/16/18 21:00 Constitutional: Yes: Calm HENT: Yes: Atraumatic Neck: Yes: Supple Cardiovascular: Yes: S1, S2 Respiratory: Yes: CTA Bilaterally Gastrointestinal: Yes: Soft Genitourinary: Yes: WNL Musculoskeletal: Yes: WNL Edema: No Neurological: Yes: Oriented Psychiatric: Yes: Oriented Labs: CBC, BMP 11/17/18 06:45 11/17/18 06:00 INR, PTT INR 1.00 (0.83-1.09) 11/12/18 13:15 Problem List - Problems (1) Eqkdy-cy-uhehdub renal failure Code(s): N17.9 - ACUTE KIDNEY FAILURE, UNSPECIFIED; N18.9 - CHRONIC KIDNEY DISEASE, UNSPECIFIED (2) Diabetes Code(s): E11.9 - TYPE 2 DIABETES MELLITUS WITHOUT COMPLICATIONS Qualifiers: Diabetes mellitus type: type 2 (3) Dizziness Code(s): R42 - DIZZINESS AND GIDDINESS (4) HTN (hypertension) Code(s): I10 - ESSENTIAL (PRIMARY) HYPERTENSION Assessment/Plan Current Medications Generic Name Dose Route Start Last Admin Trade Name Freq PRN Reason Stop Dose Admin Aspirin 81 mg 11/17/18 10:52 11/17/18 11:01 Asa - PO 81 mg DAILY [facility] Administration Heparin Sodium (Porcine) 5,000 unit 11/13/18 18:00 11/17/18 10:44 Heparin - SQ 5,000 unit Q8H-IV [facility] Administration Insulin Aspart 1 vial 11/13/18 16:30 11/17/18 12:06 Novolog Vial Sliding Scale - SQ Not Given ACHS [facility] Protocol Losartan Potassium 100 mg 11/15/18 10:00 11/17/18 10:44 Cozaar - PO 100 mg DAILY [facility] Administration Meclizine HCl 12.5 mg 11/15/18 14:31 Antivert - PO BID PRN VERTIGO Metoprolol Succinate 12.5 mg 11/14/18 14:00 11/17/18 10:43 Toprol Xl - PO 12.5 mg DAILY [facility] Administration Laboratory Tests 01/16/17 01/17/17 01/18/17 20:22 12:27 06:30 Creatinine 1.8 H D 1.5 H 1.7 H 11/15/18 11/17/18 11:50 06:00 Creatinine 1.5 H 1.6 H Impression 1. CKD 2. HTN 3. DM 4. CVA 5. dizziness Plan - renal function stabilizing - can see pt in office - bp is stabilizing - pt feels dizziness is improved - renal ultrasound reviewed
--- NOTE | 2018-11-17 13:04 | CON.GI ---
Consult Consult Specialty:: GI Referred by:: Medicine Reason for Consultation:: anemia - History of Present Illness Chief Complaint: dizziness History of Present Illness: 78F with h/o HTN, CVA, DM, HL, admitted with dizziness GI consulted for anemia Iron studies with borderline low iron, TIBC, percent saturation; no ferritin Patient reports regular bm without blood; no abdominal pain, eats well, no N/V, no recent weight loss No prior colonoscopy or endoscopy - History Source History Provided By: Patient - Past Medical History [employer]: Yes: CVA (2012), Seizure, TIA (2013) Cardio/Vascular: Yes: HTN, Hyperlipdemia Renal/: Yes: Renal Inusuff Endocrine: Yes: Diabetes Mellitus - Alcohol/Substance Use Hx Alcohol Use: No - Smoking History Smoking history: Never smoked Have you smoked in the past 12 months: No - Social History Usual Living Arrangement: Alone ADL: Independent History of Recent Travel: No Home Medications - Allergies Allergies/Adverse Reactions: Allergies Allergy/AdvReac Type Severity Reaction Status Date / Time No Known Allergies Allergy Verified 11/12/18 12:04 - Home Medications Home Medications: Ambulatory Orders Amlodipine Besylate [Norvasc -] 10 mg PO DAILY #30 tablet MDD 1 01/18/17 Ergocalciferol [Vitamin D2] 50,000 unit PO Q7D@1000 11/12/18 Glipizide Xl [Glucotrol Xl -] 5 mg PO BID 11/12/18 Losartan Potassium [Cozaar] 100 mg PO DAILY 11/12/18 Metoprolol Succinate [Toprol Xl] 12.5 mg PO DAILY 11/12/18 Review of Systems - Review of Systems Constitutional: reports: No Symptoms Eyes: reports: No Symptoms HENT: reports: No Symptoms Neck: reports: No Symptoms Cardiovascular: reports: No Symptoms Respiratory: reports: No Symptoms Gastrointestinal: denies: Abdominal Pain, Constipation, Melena, Nausea, Rectal Bleeding Musculoskeletal: reports: No Symptoms Neurological: reports: Dizziness Endocrine: reports: No Symptoms Hematology/Lymphatic: reports: No Symptoms Psychiatric: reports: No Symptoms Physical Exam-GI Vital Signs: Vital Signs Temperature 98.1 F 11/17/18 02:00 Pulse Rate 66 11/17/18 02:00 Respiratory Rate 18 11/17/18 02:00 Blood Pressure 146/64 11/17/18 02:00 O2 Sat by Pulse Oximetry (%) 94 L 11/16/18 21:00 Constitutional: Yes: Well Nourished, No Distress Eyes: Yes: Conjunctiva Clear HENT: Yes: Atraumatic Cardiovascular: Yes: Regular Rate and Rhythm Respiratory: Yes: CTA Bilaterally ...Palpate: Yes: Soft. No: Tenderness ...Percussion: No: Tympanitic ...Rectal Exam: Yes: Deferred Edema: No Neurological: Yes: Alert, Oriented Psychiatric: Yes: Alert, Oriented Labs: CBC, BMP 11/17/18 06:45 11/17/18 06:00 INR, PTT INR 1.00 (0.83-1.09) 11/12/18 13:15 Assessment/Plan Anemia - based on current studies, more c/w chronic disease Check ferritin Discussed options for colon cancer screening vs anemia evaluation (pending ferritin) with patient; after discussion with her, she would like to follow up in GI office as an outpatient to discuss labs and options.
[2018-11-18] MEDS: HEPARIN NA (PORCINE) 5,000 UNITS/ML 1ML VIAL SQ SCH ×2 (02:30→10:07)
[2018-11-18] MEDS: INSULIN SLIDING SCALE (NOVOLOG) 1 VIAL SQ SCH (06:07)
[2018-11-18 07:10] LABS: BASO % 0.4 % (0-2.0); EOS % 4.8 % (0-4.5); HEMATOCRIT 27.9 % (32.4-45.2); HEMOGLOBIN 9.4 GM/dL (10.7-15.3); LYMPH % 35.8 % (8-40); MCH 30.3 pg (25.7-33.7); MCHC 33.7 g/dl (32.0-36.0); MEAN CELL VOLUME 89.9 fl (80-96); MONO % 8.8 % (3.8-10.2); NEUT % 50.2 % (42.8-82.8); PLATELET COUNT 256 K/MM3 (134-434); RDW 14.2 % (11.6-15.6); WHITE BLOOD COUNT 6.4 K/mm3 (4.0-10.0)
[2018-11-18 07:40] LABS: BILIRUBIN,TOTAL 0.2 mg/dL (0.2-1); BLOOD UREA NITROGEN 42.5 mg/dL (7-18); CALCIUM 8.5 mg/dL (8.5-10.1); CREATININE 1.5 mg/dL (0.55-1.3); POTASSIUM 4.6 mmol/L (3.5-5.1); TOT PROT 6.2 g/dl (6.4-8.2)
[2018-11-18] MEDS: LOSARTAN POTASSIUM 50 MG TABLET (FP) PO SCH (10:07)
[2018-11-18] MEDS: ASPIRIN 81 MG CHEWABLE TABLETS PO SCH (10:07)
[2018-11-18] MEDS: metoPROLOL SUCCINATE 25 MG TAB.SR.24H (FP) PO SCH (10:08)
--- NOTE | 2018-11-18 11:05 | PN ---
Progress Note, Physician Chief Complaint: Dizziness Anemia History of Present Illness: Echo-unremarkable, LVH, RVSP mild elevation, normal LVEF Seen by Neurology CT head x 2 negative U/S carotid negative Renal/bladder U/S negative Cr at baseline Seen by GI for anemia-recommended work up o/p - Current Medication List Current Medications: Active Medications Aspirin (Asa -) 81 mg PO DAILY [facility] Last Admin: 11/18/18 10:07 Dose: 81 mg Heparin Sodium (Porcine) (Heparin -) 5,000 unit SQ Q8H-IV [facility] Last Admin: 11/18/18 10:07 Dose: 5,000 unit Insulin Aspart (Novolog Vial Sliding Scale -) 1 vial SQ ACHS [facility]; Protocol Last Admin: 11/18/18 06:07 Dose: Not Given Losartan Potassium (Cozaar -) 100 mg PO DAILY [facility] Last Admin: 11/18/18 10:07 Dose: 100 mg Meclizine HCl (Antivert -) 12.5 mg PO BID PRN PRN Reason: VERTIGO Metoprolol Succinate (Toprol Xl -) 12.5 mg PO DAILY [facility] Last Admin: 11/18/18 10:08 Dose: 12.5 mg Polyethylene Glycol (Miralax (For Daily Use) -) 17 gm PO DAILY [facility] - Objective Vital Signs: Vital Signs Temperature 98.5 F 11/18/18 06:00 Pulse Rate 67 11/18/18 06:00 Respiratory Rate 20 11/18/18 06:00 Blood Pressure 144/42 L 11/18/18 06:00 O2 Sat by Pulse Oximetry (%) 96 11/17/18 21:00 Constitutional: Yes: Well Nourished, No Distress, Calm Cardiovascular: Yes: Regular Rate and Rhythm Respiratory: Yes: Regular Gastrointestinal: Yes: Normal Bowel Sounds, Soft Genitourinary: Yes: WNL Musculoskeletal: Yes: WNL Extremities: Yes: WNL Edema: No Peripheral Pulses WNL: Yes Neurological: Yes: Alert, Oriented Psychiatric: Yes: Alert, Oriented Labs: CBC, BMP 11/18/18 06:05 11/18/18 06:05 INR, PTT INR 1.00 (0.83-1.09) 11/12/18 13:15 Assessment/Plan (1) Lzyil-qw-myotfrk renal failure Assessment/Plan: -Renal on board -BUN/Cr at baseline -to f/u nephrology o/p -Renal US shows mild atrophic kidneys with no evidence of hydronephrosis or acute pathology Code(s): N17.9 - ACUTE KIDNEY FAILURE, UNSPECIFIED; N18.9 - CHRONIC KIDNEY DISEASE, UNSPECIFIED (2) Diabetes Assessment/Plan: -BGM ACHS -[facility] -HgA1c 6.8% Code(s): E11.9 - TYPE 2 DIABETES MELLITUS WITHOUT COMPLICATIONS Qualifiers: Diabetes mellitus type: type 2 (3) Dizziness Assessment/Plan: -Neurology and Cardiology on board -Head CT scan shows no evidence of acute intracranial hemorrhage, hydrocephalus , chronic supratentorial infarcts, extensive supratentorial white matter microangiopathic ischemic changes, gliosis -repeat CT scan shows no changes -Neuro checks -Orthostatic BP + -Fall precautions -Carotid US shows no evidence of hemodynamically significant stenosis -Meclizine -PT Code(s): R42 - DIZZINESS AND GIDDINESS (4) HTN (hypertension) Assessment/Plan: -Losartan and Metoprolol -low Na diet Code(s): I10 - ESSENTIAL (PRIMARY) HYPERTENSION (5) Unsteady gait Assessment/Plan: -Fall precautions -PT Code(s): R26.81 - UNSTEADINESS ON FEET (6) Anemia Assessment/Plan: -Continue Iron supplement -stool for occult blood -GI consult appreciated
--- NOTE | 2018-11-18 11:08 | DS ---
Physical Examination Vital Signs: Vital Signs Temperature 98.5 F 11/18/18 06:00 Pulse Rate 67 11/18/18 06:00 Respiratory Rate 20 11/18/18 06:00 Blood Pressure 144/42 L 11/18/18 06:00 O2 Sat by Pulse Oximetry (%) 96 11/17/18 21:00 Findings/Remarks: he patient is a 78 year old female, with a significant past medical history of HTN, CVA (2012, with residual poor vision), diabetes and HLD, who presents to the ED for evaluation of dizziness for 2 days. Patient is a poor historian, her aid provides history at bedside. Aid notes that the patient has been complaining that she feels dizzy, as if she is going to pass out. She typically ambulates with a cane at baseline, but has been clinging to her aid because she feels like she is off-balance and going to fall. Aid notes she seems to be overwhelmed, and will not let her leave when her shift is over. Patient endorses numbness and tingling of the left hand, but is unsure of the duration of its presence. She denies any pain diffusely at this time. Patient was supposed to follow up with cheese tester this morning, but came to the ED for evaluation instead. She has not followed up with her neurologist at this time. per HORTICULTURAL AGENT the patient has a good appetite , and patient says she feels room spinning around , no tinnitus.no CP ,no palpitations, no nausea and vomiting Pt has been diagnosed with Vertigo Constitutional: Yes: Well Nourished, No Distress, Calm Cardiovascular: Yes: Regular Rate and Rhythm Respiratory: Yes: Regular Gastrointestinal: Yes: Normal Bowel Sounds, Soft Renal/: Yes: WNL Musculoskeletal: Yes: WNL Extremities: Yes: WNL Edema: No Peripheral Pulses WNL: Yes Neurological: Yes: Alert, Oriented Psychiatric: Yes: Alert, Oriented Labs: CBC, BMP 11/18/18 06:05 11/18/18 06:05 Discharge Summary Problems reviewed: Yes Reason For Visit: DIZZINESS,UNSTEADY GAIT,LEFT BUNDLE BRANCH BLOCK Current Active Problems Gydia-ip-tmzzkwg renal failure (Acute) Diabetes (Acute) Dizziness (Acute) HTN (hypertension) (Acute) LBBB (left bundle branch block) (Acute) Unsteady gait (Acute) Laboratory Last Values WBC 6.4 K/mm3 (4.0-10.0) 11/18/18 06:05 RBC 3.10 M/mm3 (3.60-5.2) L 11/18/18 06:05 Hgb 9.4 GM/dL (10.7-15.3) L 11/18/18 06:05 Hct 27.9 % (32.4-45.2) L 11/18/18 06:05 MCV 89.9 fl (80-96) 11/18/18 06:05 MCH 30.3 pg (25.7-33.7) 11/18/18 06:05 MCHC 33.7 g/dl (32.0-36.0) 11/18/18 06:05 RDW 14.2 % (11.6-15.6) 11/18/18 06:05 Plt Count 256 K/MM3 (134-434) 11/18/18 06:05 MPV 8.0 fl (7.5-11.1) 11/18/18 06:05 Absolute Neuts (auto) 3.2 K/mm3 (1.5-8.0) 11/18/18 06:05 Neutrophils % 50.2 % (42.8-82.8) D 11/18/18 06:05 Lymphocytes % 35.8 % (8-40) D 11/18/18 06:05 Monocytes % 8.8 % (3.8-10.2) 11/18/18 06:05 Eosinophils % 4.8 % (0-4.5) H 11/18/18 06:05 Basophils % 0.4 % (0-2.0) 11/18/18 06:05 Nucleated RBC % 0 % (0-0) 11/18/18 06:05 PT with INR 11.80 SEC (9.7-13.0) 11/12/18 13:15 INR 1.00 (0.83-1.09) 11/12/18 13:15 Sodium 145 mmol/L (136-145) 11/18/18 06:05 Potassium 4.6 mmol/L (3.5-5.1) 11/18/18 06:05 Chloride 116 mmol/L (98-107) H 11/18/18 06:05 Carbon Dioxide 24 mmol/L (21-32) 11/18/18 06:05 Anion Gap 6 MMOL/L (8-16) L 11/18/18 06:05 BUN 42.5 mg/dL (7-18) H 11/18/18 06:05 Creatinine 1.5 mg/dL (0.55-1.3) H 11/18/18 06:05 Est GFR (CKD-EPI)AfAm 38.01 11/18/18 06:05 Est GFR (CKD-EPI)NonAf 32.79 11/18/18 06:05 POC Glucometer 110 UNITS (80-120) 11/18/18 06:06 Random Glucose 111 mg/dL (74-106) H 11/18/18 06:05 Hemoglobin A1c % 6.8 % (4.2-6.3) H 11/14/18 05:25 Calcium 8.5 mg/dL (8.5-10.1) 11/18/18 06:05 Iron 41 ug/dL (50-175) L 11/13/18 16:00 TIBC 234 ug/dL (250-450) L 11/13/18 16:00 Iron Saturation 17 % (17.5-39) L 11/13/18 16:00 Unsaturated IBC 193 ug/dL (200-275) L 11/13/18 16:00 Ferritin 77.0 ng/ml (8-388) 11/18/18 06:05 Total Bilirubin 0.2 mg/dL (0.2-1) 11/18/18 06:05 AST 8 U/L (15-37) L 11/18/18 06:05 ALT 14 U/L (13-61) 11/18/18 06:05 Alkaline Phosphatase 60 U/L (45-117) 11/18/18 06:05 Creatine Kinase 106 U/L (26-192) 11/12/18 13:15 Troponin I < 0.02 ng/ml (0.00-0.05) 11/12/18 13:15 Total Protein 6.2 g/dl (6.4-8.2) L 11/18/18 06:05 Albumin 3.0 g/dl (3.4-5.0) L 11/18/18 06:05 Vitamin B12 622 pg/ml (193-986) 11/14/18 05:25 Vital Signs Temp 98.5 F 11/18/18 06:00 Pulse 67 11/18/18 06:00 Resp 20 11/18/18 06:00 BP 144/42 L 11/18/18 06:00 Pulse Ox 96 11/17/18 21:00 Intake & Output 11/17/18 11/17/18 11/18/18 11:59 23:59 11:59 Intake Total 0 390 200 Balance 0 390 200 Intake: IV 0 saline lock 0 Oral 390 200 Other: Voiding Method Toilet Toilet Toilet # Unmeasured Voids Void 2 3 1 Bowel Movement No No Hospital Course: Echo-unremarkable, LVH, RVSP mild elevation, normal LVEF Seen by Neurology CT head x 2 negative U/S carotid negative Renal/bladder U/S negative Cr at baseline Seen by GI for anemia-recommended work up o/p Condition: Stable - Instructions Referrals: Milagros Dove MD [Staff Physician] - Erin Franklin MD [Staff Physician] - Disposition: [facility]/HOME HEALTH CARE - Home Medications Comprehensive Discharge Medication List: Ambulatory Orders Amlodipine Besylate [Norvasc -] 10 mg PO DAILY #30 tablet MDD 1 01/18/17 Ergocalciferol [Vitamin D2] 50,000 unit PO Q7D@1000 11/12/18 Glipizide Xl [Glucotrol Xl -] 5 mg PO BID 11/12/18 Losartan Potassium [Cozaar] 100 mg PO DAILY 11/12/18 Metoprolol Succinate [Toprol Xl] 12.5 mg PO DAILY 11/12/18 Meclizine HCl [Antivert -] 12.5 mg PO BID PRN #60 tablet 11/18/18 Polyethylene Glycol 3350 [Miralax 119 gm Btl -] 17 gm PO DAILY #1 bottle Prescription Drug Monitoring Program (I-STOP) results: I-STOP not reviewed (Pt not on any narcotics)
[2018-11-18] MEDS ORDERED: POLYETHYLENE GLYCOL 3350 119 GM BTL PO SCH (11:15)
[2018-11-18 12:02] VITALS: BP 138/51; PULSE 65; TEMP 98.2
== END 2018-11-18 14:00 | disposition home health service (06) | DRG 312 ==
LOC: JER 11:47 → JERBED 13:57 → J4W 17:15
PROVIDERS: ADMIT Family Medicine; ATTEND Family Medicine
DX: I95.1 Orthostatic hypotension (principal); N17.9 Acute kidney failure, unspecified; I69.398 Other sequelae of cerebral infarction; H54.7 Unspecified visual loss; E78.5 Hyperlipidemia, unspecified; Z79.84 Long term (current) use of oral hypoglycemic drugs; I44.7 Left bundle-branch block, unspecified; I25.10 Atherosclerotic heart disease of native coronary artery without angina pectoris; R42 Dizziness and giddiness; E11.22 Type 2 diabetes mellitus with diabetic chronic kidney disease; I12.9 Hypertensive chronic kidney disease with stage 1 through stage 4 chronic kidney disease, or unspecified chronic kidney disease; N18.9 Chronic kidney disease, unspecified; R26.81 Unsteadiness on feet; D63.8 Anemia in other chronic diseases classified elsewhere
CPT/HCPCS: 36415; 70450-TC; 71045-TC-FY; 76775-TC; 76856-TC; 80053; 82550; 82607; 82728; 82962; 83036; 83540; 83550; 84484; 85025; 85027; 85610; 93005; 93010; 93306-TC; 93880-TC; 97116-GP; 97161-GP; 99285-25; J1644; J7030